=== PATIENT | male | born 1980 | race Caucasian/White ===

== ENCOUNTER 2021-05-18 18:29 | Emergency (ER) | payer MEDICAID, OTHER ==
--- NOTE | 2021-05-18 18:47 | ED Physician Documentation ---
History of Present Illness - Stated complaint Stated Complaint: DIZZY,WEAK,BACK PX - Chief complaint Chief Complaint: Neuro - Additonal information Additional information: 41-year-old male presents emergency department for evaluation of feeling weak, dizzy and lightheaded for the last week. He reports that when he changes position he often feels off balance. He sometimes says that he simply does not feel right and is fearful that he will pass out though he has no syncopal events. 9 he denies chest pain or shortness of air. He has had some diarrhea over the last week. No headaches. Patient was a heavy alcohol user. Reported drinking daily until about 6 weeks ago when he stopped abruptly however he reportedly drank about 24 beers last weekend and had a few mixed drinks this week. He also is a pack per day tobacco user. Patient states that just over 1 week ago he decided to lose weight and stopped eating carbs and switch to a protein only diet. Denies any known medical history including diabetes, hypertension coronary ar andie disease or strokes. Takes no prescribed medications Review of Systems Constitutional: denies: Fever, Chills Eyes: reports: Reviewed and negative Ears: reports: Reviewed and negative Nose: reports: Reviewed and negative Throat: reports: Reviewed and negative Cardiac: denies: Chest pain / pressure, Palpitations, Pedal edema, Calf pain Respiratory: reports: Dyspnea. denies: Cough, Hemoptysis, Wheezing GI: reports: Reviewed and negative : reports: Reviewed and negative Skin: reports: Other (scleral icterus) Musculoskeletal: reports: Back pain. denies: Neck pain, Extremity pain, Joint pain Neurologic: reports: Reviewed and negative PD PAST MEDICAL HISTORY - Present Medications Home Medications: Ambulatory Orders Medication Instructions Recorded Confirmed No Known Home Medications 05/18/21 05/18/21 - Allergies Allergies/Adverse Reactions: Allergies Allergy/AdvReac Type Severity Reaction Status Date / Time No Known Drug Allergies Allergy Verified 05/18/21 18:32 PD ED PE EXPANDED - General General: Alert, No acute distress - Eyes Eyes: PERRL, EOMI, Scleral icterus - Neck Neck: Supple w/out meningeal sx. No: Adenopathy - Cardiac Cardiac: Regular Rate, Radial strong equal, Pedal strong equal, Cap refill < 2 sec. No: Murmur Present - Respiratory Respiratory: Clear to ausultation tonya. No: Distress, Labored - Abdomen Abdomen: Normal Bowel sounds. No: Tender to palpation - Derm Derm: Normal color, Warm and dry. No: Jaundiced - Extremities Extremities: Normal, Pedal Pulses Present. No: Deformity, Tenderness - Neuro Neuro: Alert and Oriented X 3, CNII-XII intact, Normal gait, Normal finger nose, Normal speech - GCS Eye Opening: Spontaneous Motor: Obeys Commands Verbal: Oriented Total: 15 Results - Vitals Vitals: Vital Signs - 24 hr 05/18/21 05/18/21 18:32 19:02 Temperature 36.7 C Heart Rate 75 Heart Rate [ 70 Sitting] Heart Rate [ 76 Standing] Heart Rate [ 74 Supine] Respiratory 18 Rate Blood Pressure 160/84 H Blood Pressure 174/98 H [Sitting] Blood Pressure 152/101 H [Standing] Blood Pressure 174/98 H [Supine] O2 Saturation 99 Oxygen O2 Source Room air - EKG (time done) 1843 Rate: Rate (enter#) (71) Rhythm: NSR [place]: LAD Intervals: Normal IN. No: Prolonged QT QRS: Normal Ischemia: Q waves (V1V2) Computer interpretation: Agree with computer - Labs Labs: Laboratory Tests 05/18/21 05/18/21 05/18/21 18:46 18:56 18:56 WBC 6.4 RBC 5.01 Hgb 16.0 Hct 46.9 MCV 93.6 MCH 31.9 H MCHC 34.1 RDW 11.9 L Plt Count 203 MPV 9.4 Neut # (Auto) 4.4 Lymph # (Auto) 1.6 [place] # (Auto) 0.3 Eos # (Auto) 0.1 Baso # (Auto) 0.0 Absolute Nucleated RBC 0.00 Nucleated RBC % 0.0 PT INR Sodium 136 Potassium 3.6 Chloride 101 Carbon Dioxide 25 Anion Gap 10.0 BUN 20 Creatinine 1.1 Estimated GFR (MDRD) 73 L Glucose 129 H POC Whole Bld Glucose Calcium 9.2 Total Bilirubin 0.5 AST 23 ALT 36 Alkaline Phosphatase 64 Troponin I High Sens Total Protein 7.1 Albumin 4.5 Globulin 2.6 Albumin/Globulin Ratio 1.7 Lipase 31 Urine Color STRAW Urine Clarity CLEAR Urine pH 6.0 Ur Specific [place] <=1.005 Urine Protein NEGATIVE Urine Glucose (UA) NEGATIVE Urine Ketones NEGATIVE Urine Occult Blood NEGATIVE Urine Nitrite NEGATIVE Urine Bilirubin NEGATIVE Urine Urobilinogen 0.2 (NORMAL) Ur Leukocyte Esterase NEGATIVE Ur Microscopic Review NOT INDICATED Urine Culture Comments NOT INDICATED 05/18/21 05/18/21 05/18/21 18:56 18:56 19:06 WBC RBC Hgb Hct MCV MCH MCHC RDW Plt Count MPV Neut # (Auto) Lymph # (Auto) [place] # (Auto) Eos # (Auto) Baso # (Auto) Absolute Nucleated RBC Nucleated RBC % PT 11.8 INR 1.1 Sodium Potassium Chloride Carbon Dioxide Anion Gap BUN Creatinine Estimated GFR (MDRD) Glucose POC Whole Bld Glucose 120 H Calcium Total Bilirubin AST ALT Alkaline Phosphatase Troponin I High Sens 2.7 Total Protein Albumin Globulin Albumin/Globulin Ratio Lipase Urine Color Urine Clarity Urine pH Ur Specific [place] Urine Protein Urine Glucose (UA) Urine Ketones Urine Occult Blood Urine Nitrite Urine Bilirubin Urine Urobilinogen Ur Leukocyte Esterase Ur Microscopic Review Urine Culture Comments - Rads (name of study) cxr Radiology: EMP read indepedently (No acute cardiopulmonary process) PD MEDICAL DECISION MAKING - ED course Complexity details: reviewed results, re-evaluated patient, considered differential, d/w patient ED course: 41-year-old male presents emergency department for evaluation of about 1 week feeling generally off lightheaded dizzy and sometimes feeling as though he was going to pass out. He has made some significant lifestyle changes recently. About 6 weeks ago he stopped drinking though he did binge drink last weekend. He has also stopped eating carbs and switch to a meat/protein only diet and in order to lose weight. On exam he has no focal neuro deficits and a normal cerebellar exam. ED orthostatic vital signs are unremarkable though he is noted to be modestly hypertensive here in the ER. Screening EKG is nonischemic. Screening labs are also unremarkable without any electrolyte derangement. 9 I did discuss with the patient that I suspect his recent lifestyle modifications may be the cause of his feeling off balance and lightheaded. I have encouraged him to consider moderation in terms of diet alcohol use as well as tobacco use. Patient is discharged home in stable condition. He is encouraged to establish with a primary care provider for routine screening exams emergent return precautions otherwise discussed. Departure - Departure Disposition: Home, Self Care Clinical Impression: Light-headed feeling Condition: Stable Record reviewed to determine appropriate education?: Yes Comments: Wei colby are seen today in the emergency department for feeling lightheaded, dizzy and weak. You have had some significant lifestyle changes over the last 6 weeks which have included significant reduction in alcohol use as well as a drastic change in your diet. I do suspect that the abstain meant of carbohydrates in your diet is contributing to your symptoms. I do encourage you to eat a healthy diet that should include moderation in carbs, lean protein, plenty of vegetables and a few fruit. Your screening labs today including your blood count and chemistry panel under are all essentially unremarkable. Your chest x-ray is normal. There are no signs that you are having a heart attack. I encourage you to stop smoking as you are able. It is important that you establish with a primary care doctor for long-term routine health screening exams. If at any point you feel that your symptoms are worsening, you have chest pain, shortness of air or any fainting episodes then please return immediately to the ER for a second evaluation
[2021-05-18 18:57] LABS: BILIRUBIN,URINE NEGATIVE (NEGATIVE); GLUCOSE, URINE (UA) NEGATIVE (NEGATIVE); KETONES,URINE (UA) NEGATIVE (NEGATIVE); LEUKOCYTE ESTERASE, URINE NEGATIVE (NEGATIVE); NITRITE,URINE NEGATIVE (NEGATIVE); OCCULT BLOOD,URINE NEGATIVE (NEGATIVE); PROTEIN,URINE NEGATIVE (NEGATIVE); UROBILINOGEN,URINE 0.2 (NORMAL) E.U./dL (NORMAL)
[2021-05-18 19:01] LABS: CLARITY,URINE CLEAR (CLEAR)
[2021-05-18 19:03] VITALS: BP 174/98
--- NOTE | 2021-05-18 19:03 | XRAY Report ---
PROCEDURE: Chest 1 View X-Ray INDICATIONS: Chest Pain TECHNIQUE: One view of the chest was acquired. COMPARISON: None FINDINGS: Surgical changes and devices: None. Lungs and pleura: No pleural effusions or pneumothorax. Lungs are clear. Mediastinum: Mediastinal contours appear normal. Heart size is normal. Bones and chest wall: No suspicious bony lesions. Overlying soft tissues appear unremarkable. IMPRESSION: No acute cardiopulmonary disease. Reviewed by: Alessia James MD on 05/18/2021 7:01 PM PDT Approved by: Alessia James MD on 05/18/2021 7:01 PM PDT Station ID: [id number]
[2021-05-18 19:05] LABS: BASOPHILS % (AUTO) 0.6 %; EOSINOPHILS # (AUTO) 0.1 10^3/uL (0.0-0.7); EOSINOPHILS % (AUTO) 1.9 %; HCT - HEMATOCRIT 46.9 % (42.0-52.0); LYMPHOCYTES # (AUTO) 1.6 10^3/uL (1.5-3.5); LYMPHOCYTES % (AUTO) 25.3 %; MEAN CORPUSCULAR HEMOGLOBIN 31.9 pg (27.0-31.0); MEAN CORPUSCULAR HGB CONC 34.1 g/dL (32.0-36.0); MEAN CORPUSCULAR VOLUME 93.6 fL (80.0-94.0); MEAN PLATELET VOLUME 9.4 fL (7.4-11.4); MONOCYTES # (AUTO) 0.3 10^3/uL (0.0-1.0); MONOCYTES % (AUTO) 4.1 %; NEUTROPHILS # (AUTO) 4.4 10^3/uL (1.5-6.6); NEUTROPHILS % (AUTO) 67.9 %; PLT - PLATELET COUNT 203 10^3/uL (130-450); RED BLOOD COUNT 5.01 10^6/uL (4.70-6.10); RED CELL DISTRIBUTION WIDTH 11.9 % (12.0-15.0); WHITE BLOOD COUNT 6.4 x10^3/uL (4.8-10.8)
[2021-05-18 19:20] LABS: INR 1.1 (0.8-1.2); PT - PROTHROMBIN TIME 11.8 secs (9.9-12.6)
[2021-05-18 19:23] LABS: ALBUMIN 4.5 g/dL (3.2-5.5); ALBUMIN/GLOBULIN RATIO 1.7 (1.0-2.2); BILIRUBIN,TOTAL 0.5 mg/dL (0.2-1.0); CALCIUM 9.2 mg/dL (8.5-10.3); CREATININE 1.1 mg/dL (0.6-1.2); POTASSIUM 3.6 mmol/L (3.5-5.0); TOTAL PROTEIN 7.1 g/dL (6.7-8.2)
== END 2021-05-18 20:09 | disposition home or self-care (01) ==
LOC: ED 18:29
DX: R42 Dizziness and giddiness (principal); Z72.0 Tobacco use
CPT/HCPCS: 36415; 80053; 81001; 81003; 83690; 84484; 85025; 85610; 87086; 93005; 99284

== ENCOUNTER 2021-05-24 11:37 | Outpatient (CLI) | payer MEDICAID ==
[2021-05-24 15:19] LABS: BASOPHILS % (AUTO) 0.4 %; EOSINOPHILS # (AUTO) 0.1 10^3/uL (0.0-0.7); EOSINOPHILS % (AUTO) 1.7 %; HCT - HEMATOCRIT 46.5 % (42.0-52.0); HGB - HEMOGLOBIN 15.4 g/dL (14.0-18.0); LYMPHOCYTES # (AUTO) 1.3 10^3/uL (1.5-3.5); LYMPHOCYTES % (AUTO) 24.5 %; MEAN CORPUSCULAR HGB CONC 33.1 g/dL (32.0-36.0); MEAN CORPUSCULAR VOLUME 93.8 fL (80.0-94.0); MEAN PLATELET VOLUME 10.2 fL (7.4-11.4); MONOCYTES # (AUTO) 0.3 10^3/uL (0.0-1.0); NEUTROPHILS # (AUTO) 3.7 10^3/uL (1.5-6.6); NEUTROPHILS % (AUTO) 68.2 %; PLT - PLATELET COUNT 212 10^3/uL (130-450); RED BLOOD COUNT 4.96 10^6/uL (4.70-6.10); RED CELL DISTRIBUTION WIDTH 11.9 % (12.0-15.0); WHITE BLOOD COUNT 5.4 x10^3/uL (4.8-10.8)
[2021-05-24 15:40] LABS: ALBUMIN 4.3 g/dL (3.2-5.5); ALBUMIN/GLOBULIN RATIO 1.6 (1.0-2.2); ALKALINE PHOSPHATASE 63 IU/L (42-121); ALT ALANINE AMINOTRANSFERASE 36 IU/L (10-60); AST ASPARTATE AMINOTRANSFERASE 22 IU/L (10-42); BILIRUBIN,TOTAL 0.4 mg/dL (0.2-1.0); BUN - BLOOD UREA NITROGEN 17 mg/dL (6-20); CARBON DIOXIDE - CO2 27 mmol/L (21-32); CHLORIDE 102 mmol/L (101-111); CREATININE 1.1 mg/dL (0.6-1.2); GFR - MDRD 73 (>89); GLUCOSE 111 mg/dL (70-100); LIPASE 33 U/L (22-51); POTASSIUM 4.4 mmol/L (3.5-5.0); SODIUM 138 mmol/L (135-145)
[2021-05-24 15:45] LABS: CRP - C-REACTIVE PROTEIN < 1.0 mg/dL (0-1.0)
[2021-05-24 15:46] LABS: THYROID STIMULATING HORMONE 1.31 uIU/mL (0.34-5.60)
[2021-05-24 15:57] LABS: FOLATE 14.2 ng/mL (5.90 - >24.8)
[2021-05-25 09:59] LABS: ESTIMATED AVERAGE GLUCOSE 100 mg/dL (70-100); HEMOGLOBIN A1c% 5.1 % (4.27-6.07)
== END 2021-05-24 23:59 | disposition home or self-care (01) ==
LOC: LAB.S 11:37
PROVIDERS: ATTEND Registered Nurse
DX: R42 Dizziness and giddiness (principal); R53.83 Other fatigue; F10.239 Alcohol dependence with withdrawal, unspecified
CPT/HCPCS: 36415; 80050; 82607; 82746; 83036; 83690; 86140

== ENCOUNTER 2021-06-11 16:32 | Emergency (ER) | payer MEDICAID ==
[2021-06-11] MEDS ORDERED: IOVERSOL 320 100 ML VIAL IVP ONE ×2 (16:50→19:05)
--- OUTSIDE RECORDS SUMMARY | 2021-06-11 16:53 | EXTERNAL MEDICAL SUMMARY RPT | Continuity of Care Document ---
:1980 Author Organization [facility] Address [address] [place] [address] Phone Care Team Providers Name Role Phone RN Unavailable Unavailable [place]ton Unavailable Unavailable [employer] BLOWER,CORPORATE COMPLIANCE DIRECTOR Unavailable Unavailable Allergies No information. Encounters No information. Medications date description facility [id number] chlordiazepoxide hcl [facility] [place] [id number] chlordiazepoxide hcl [facility] [place] [id number] chlordiazepoxide hcl [facility] [place] Problems date description facility [id number] VITAMIN B 12 [facility] [id number] TSH WITH REFLEX TO FT4 [facility] [id number] Other malaise and fatigue [facility] ic [facility] [id number] Nonspecific abnormal electrocardiogram [facility] Primary Care & [ECG] [EKG] [facility]illary [facility] [id number] Lipase [facility] [id number] Dizziness and giddiness [facility] [id number] COMPREHENSIVE METABOLIC PANEL [facility] 20210524 CBC W/Diff/Plt [facility] 20210524 Alcohol withdrawal [facility] 20210524 Other fatigue [facility] [id number] HGBA1C [facility] 20210524 Folic Acid [facility] [id number] Electrocardiogram abnormal [facility] [id number] CRP [facility] [id number] Abnormal electrocardiogram [ECG] [EKG] [facility] [id number] Fatigue [facility] 20210524 Dizziness [facility] 20210524 Alcohol withdrawal syndrome [facility] 20210524 Alcohol dependence with withdrawal, [place] [facility] & unspecified [facility] Procedures date description facility [id number] CRP [facility] [place] 20210524 CBC W/Diff/Plt [facility] [place] 20210524 Lipase [facility] [id number] HGBA1C [facility] 20210524 Folic Acid [facility] 20210524 VITAMIN B 12 [facility] 20210524 COMPREHENSIVE METABOLIC PANEL [facility] 20210524 TSH WITH REFLEX TO FT4 [facility] 20210524 CRP [facility] 20210524 CBC W/Diff/Plt [facility] 20210524 Lipase [facility] [place] [id number] HGBA1C [facility] 20210524 Folic Acid [facility] 20210524 VITAMIN B 12 [facility] 20210524 COMPREHENSIVE METABOLIC PANEL [facility] 20210524 TSH WITH REFLEX TO FT4 [facility] 20210524 CRP [facility] 20210524 CBC W/Diff/Plt [facility] 20210524 Lipase [facility] 20210524 HGBA1C [facility] 20210524 Folic Acid [facility] 20210524 VITAMIN B 12 [facility] 20210524 COMPREHENSIVE METABOLIC PANEL [facility] [place] 20210524 TSH WITH REFLEX TO FT4 [facility] [place] Results test status date ordered by attending specimen cristy e THYROID_STIMULATING_HO unknown 20210524 unknown unknown unknown RMONE TSH unknown 20210524 unknown unknown unknown urea_nitrogen_blood unknown 20210524 unknown unknown unk nown Erythrocytes_volume_in unknown 20210524 unknown unknown unknown _Blood_by_Automated_cou nt Erythrocyte_distributi unknown 20210524 unknown unknown unknown on_width_Ratio_by_Autom ated_count MCV_Entitic_volume_by_ unknown 20210524 unknown unknown unknown Automated_count MCH_Entitic_mass_by_Au unknown 20210524 unknown unknown unknown tomated_count Platelets_volume_in_Bl unknown 20210524 unknown unknown unknown ood_by_Automated_count Platelet_mean_volume_E unknown 20210524 unknown unknown unknown ntitic_volume_in_Blood_ by_Rees-Grace neutrophil_count_blood unknown 20210524 unknown unknown unknown monocyte_count_blood unknown 20210524 unknown unknown un known lymphocyte_count_blood unknown 20210524 unknown unknown unknown Hemoglobin_Mass_volume unknown 20210524 unknown unknown unknown _in_Blood eosinophil_count_blood unknown 20210524 unknown unknown unknown Basophils_volume_in_Bl unknown 20210524 unknown unknown unknown ood_by_Manual_count leukocyte_count_blood unknown 20210524 unknown unknown u nknown erythrocyte_RBC_count unknown 20210524 unknown unknown u nknown Leukocytes_volume_in_B unknown 20210524 unknown unknown unknown lood_by_Automated_count Glomerular_Filtration_ unknown 20210524 unknown unknown unknown rate platelet_count unknown 20210524 unknown unknown unknown hemoglobin_blood unknown 20210524 unknown unknown unknow n hematocrit_blood unknown 20210524 unknown unknown unknow n potassium_blood unknown 20210524 unknown unknown unknown vitamin_b12_serum unknown 20210524 unknown unknown unkno wn Glomerular_filtration_r unknown 20210524 unknown unknown unknown ate_1.73_sq_M.predicted _among_non-blacks_Volum e_Rate_Area_in_Serum_Pl asma_or_Blood_by_Creati nine-based_formula_MDRD _ Hemoglobin_A1c_Hemoglo unknown 20210524 unknown unknown unknown bin_total_in_Blood_-_ Hematocrit_Volume_Frac unknown 20210524 unknown unknown unknown tion_of_Blood_by_Automa ted_count bilirubin_serum_total unknown 20210524 unknown unknown u nknown alanine_aminotransfera unknown 20210524 unknown unknown unknown se_SGPT_serum carbon_dioxide_serum_t unknown 20210524 unknown unknown unknown otal aspartate_aminotransfe unknown 20210524 unknown unknown unknown rase_SGOT_serum protein_total_serum unknown 20210524 unknown unknown unk nown blood_glucose unknown 20210524 unknown unknown unknown potassium_blood unknown 20210524 unknown unknown unknown mean_corpuscular_volum unknown 20210524 unknown unknown unknown e_RBC Urea_nitrogen_Mass_vol unknown 20210524 unknown unknown unknown ume_in_Serum_or_Plasma globulin_serum unknown 20210524 unknown unknown unknown alkaline_phosphatase_s unknown 20210524 unknown unknown unknown deana Sodium_Moles_volume_in unknown 20210524 unknown unknown unknown _Serum_or_Plasma Protein_Mass_volume_in unknown 20210524 unknown unknown unknown _Serum_or_Plasma eosinophil_count_blood unknown 20210524 unknown unknown unknown hemoglobin_A1C_blood_a unknown 20210524 unknown unknown unknown s_of_total_hemoglobin anion_gap_serum unknown 20210524 unknown unknown unknown mean_platelet_volume unknown 20210524 unknown unknown un known Glucose_mean_value_Mas unknown 20210524 unknown unknown unknown s_volume_in_Blood_Estim ated_from_glycated_hemo globin C-reactive_protein_ser unknown 20210524 unknown unknown unknown um basophil_count_blood unknown 20210524 unknown unknown un known monocyte_count_blood unknown 20210524 unknown unknown un known lymphocyte_count_blood unknown 20210524 unknown unknown unknown neutrophil_count_blood unknown 20210524 unknown unknown unknown Glucose_Mass_volume_in unknown 20210524 unknown unknown unknown _Serum_or_Plasma Globulin_Mass_volume_i unknown 20210524 unknown unknown unknown n_Serum Creatinine_Mass_volume unknown 20210524 unknown unknown unknown _in_Serum_or_Plasma Cobalamin_Vitamin_B12_ unknown 20210524 unknown unknown unknown Mass_volume_in_Serum_or _Plasma Chloride_Moles_volume_ unknown [id number] unknown unknown unknown in_Serum_or_Plasma carbon_dioxide_serum_t unknown 20210524 unknown unknown unknown otal Calcium_Moles_volume_i unknown 20210524 unknown unknown unknown n_Serum_or_Plasma albumin_serum unknown 20210524 unknown unknown unknown C_reactive_protein_Mas unknown 20210524 unknown unknown unknown s_volume_in_Serum_or_Pl asma Bilirubin.total_Mass_v unknown 20210524 unknown unknown unknown olume_in_Serum_or_Plasm a Aspartate_aminotransfe unknown 20210524 unknown unknown unknown rase_Enzymatic_activity _volume_in_Serum_or_Pla sma Anion_gap_4_in_Serum_o unknown 20210524 unknown unknown unknown r_Plasma Estimated_Average_Gluc unknown 20210524 unknown unknown unknown ose creatinine_serum unknown 20210524 unknown unknown unknow n Alkaline_phosphatase_E unknown 20210524 unknown unknown unknown nzymatic_activity_volum e_in_Blood Albumin_Globulin_Mass_ unknown 20210524 unknown unknown unknown Ratio_in_Serum_or_Plasm a Albumin_Mass_volume_in unknown 20210524 unknown unknown unknown _Serum_or_Plasma Alanine_aminotransfera unknown 20210524 unknown unknown unknown se_Enzymatic_activity_v olume_in_Serum_or_Plasm a mean_corpuscular_hemog unknown 20210524 unknown unknown unknown lobin_concentration_rbc sodium_serum unknown 20210524 unknown unknown unknown albumin_globulin_ratio unknown 20210524 unknown unknown unknown _serum chloride_serum unknown 20210524 unknown unknown unknown Thyrotropin_Units_volu unknown 20210524 unknown unknown unknown me_in_Serum_or_Plasma_b y_Detection_limit_lt_0. 05_mIU_L calcium_serum unknown 20210524 unknown unknown unknown mean_corpuscular_hemog unknown 20210524 unknown unknown unknown lobin_RBC red_blood_cell_distrib unknown 20210524 unknown unknown unknown ution_width T unknown 20210524 unknown unknown unknown T unknown 20210524 unknown unknown unknown T unknown 20210524 unknown unknown unknown T unknown 20210524 unknown unknown unknown T unknown 20210524 unknown unknown unknown T unknown 20210524 unknown unknown unknown T unknown 20210524 unknown unknown unknown NEUTROPHILS_AUTO_ unknown 20210524 unknown unknown unkno wn T unknown [id number] unknown unknown unknown T unknown [id number] unknown unknown unknown T unknown 14817271 unknown unknown unknown MONOCYTES_AUTO_ unknown [id number] unknown unknown unknown T unknown [id number] unknown unknown unknown T unknown 80025076 unknown unknown unknown T unknown 42581676 unknown unknown unknown T unknown 94205416 unknown unknown unknown LYMPHOCYTES_AUTO_ unknown 84632333 unknown unknown unkno wn T unknown 02800677 unknown unknown unknown T unknown 58256636 unknown unknown unknown T unknown 82876310 unknown unknown unknown T unknown 31311997 unknown unknown unknown T unknown 70993338 unknown unknown unknown T unknown 55900859 unknown unknown unknown T unknown [id number] unknown unknown unknown GFR_-_MDRD unknown 71610552 unknown unknown unknown T unknown 68945147 unknown unknown unknown T unknown 10122066 unknown unknown unknown EOSINOPHILS_AUTO_ unknown [id number] unknown unknown unkno wn T unknown [id number] unknown unknown unknown ESTIMATED_AVERAGE_GLUC unknown 01023137 unknown unknown unknown OSE ENR_-_P-IRWTYAXY_UGOMY unknown 47721953 unknown unknown unknown IN T unknown 37521097 unknown unknown unknown T unknown 30505699 unknown unknown unknown T unknown 14473888 unknown unknown unknown T unknown 65542595 unknown unknown unknown T unknown 80857767 unknown unknown unknown T unknown 39300358 unknown unknown unknown BILIRUBIN_TOTAL unknown 10698651 unknown unknown unknown BASOPHILS_AUTO_ unknown 61006250 unknown unknown unknown T unknown 57996863 unknown unknown unknown T unknown 28151906 unknown unknown unknown T unknown 14123082 unknown unknown unknown T unknown 01619001 unknown unknown unknown T unknown [id number] unknown unknown unknown ALT_ALANINE_AMINOTRANS unknown [id number] unknown unknown unknown FERASE ALKALINE_PHOSPHATASE unknown 87880988 unknown unknown un known T unknown 20063378 unknown unknown unknown T unknown 11422236 unknown unknown unknown ALBUMIN_GLOBULIN_RATIO unknown [id number] unknown unknown unknown T unknown 78182852 unknown unknown unknown HEMOGLOBIN_A1c_ unknown 75681502 unknown unknown unknown THYROID_STIMULATING_HO unknown [id number] unknown unknown unknown RMONE TSH unknown 24581740 unknown unknown unknown urea_nitrogen_blood unknown 77832573 unknown unknown unk nown Erythrocytes_volume_in unknown 14190502 unknown unknown unknown _Blood_by_Automated_cou nt Erythrocyte_distributi unknown 63334486 unknown unknown unknown on_width_Ratio_by_Autom ated_count MCV_Entitic_volume_by_ unknown 51693858 unknown unknown unknown Automated_count MCH_Entitic_mass_by_Au unknown 20210524 unknown unknown unknown tomated_count Platelets_volume_in_Bl unknown 20210524 unknown unknown unknown ood_by_Automated_count Platelet_mean_volume_E unknown 20210524 unknown unknown unknown ntitic_volume_in_Blood_ by_Rees-Grace neutrophil_count_blood unknown 20210524 unknown unknown unknown monocyte_count_blood unknown 37031924 unknown unknown un known lymphocyte_count_blood unknown 20210524 unknown unknown unknown Hemoglobin_Mass_volume unknown 20210524 unknown unknown unknown _in_Blood eosinophil_count_blood unknown 20210524 unknown unknown unknown Basophils_volume_in_Bl unknown 20210524 unknown unknown unknown ood_by_Manual_count leukocyte_count_blood unknown 20210524 unknown unknown u nknown erythrocyte_RBC_count unknown 20210524 unknown unknown u nknown Leukocytes_volume_in_B unknown 20210524 unknown unknown unknown lood_by_Automated_count Glomerular_Filtration_ unknown 20210524 unknown unknown unknown rate platelet_count unknown 20210524 unknown unknown unknown hemoglobin_blood unknown 20210524 unknown unknown unknow n hematocrit_blood unknown 20210524 unknown unknown unknow n potassium_blood unknown 20210524 unknown unknown unknown vitamin_b12_serum unknown 20210524 unknown unknown unkno wn Glomerular_filtration_r unknown 20210524 unknown unknown unknown ate_1.73_sq_M.predicted _among_non-blacks_Volum e_Rate_Area_in_Serum_Pl asma_or_Blood_by_Creati nine-based_formula_MDRD _ Hemoglobin_A1c_Hemoglo unknown 20210524 unknown unknown unknown bin_total_in_Blood_-_ Hematocrit_Volume_Frac unknown 20210524 unknown unknown unknown tion_of_Blood_by_Automa ted_count bilirubin_serum_total unknown 20210524 unknown unknown u nknown alanine_aminotransfera unknown 20210524 unknown unknown unknown se_SGPT_serum carbon_dioxide_serum_t unknown 20210524 unknown unknown unknown otal aspartate_aminotransfe unknown 20210524 unknown unknown unknown rase_SGOT_serum protein_total_serum unknown 20210524 unknown unknown unk nown blood_glucose unknown 20210524 unknown unknown unknown potassium_blood unknown 20210524 unknown unknown unknown mean_corpuscular_volum unknown 20210524 unknown unknown unknown e_RBC Urea_nitrogen_Mass_vol unknown 20210524 unknown unknown unknown ume_in_Serum_or_Plasma globulin_serum unknown 20210524 unknown unknown unknown alkaline_phosphatase_s unknown 20210524 unknown unknown unknown deana Sodium_Moles_volume_in unknown 20210524 unknown unknown unknown _Serum_or_Plasma Protein_Mass_volume_in unknown 20210524 unknown unknown unknown _Serum_or_Plasma eosinophil_count_blood unknown 20210524 unknown unknown unknown hemoglobin_A1C_blood_a unknown 20210524 unknown unknown unknown s_of_total_hemoglobin anion_gap_serum unknown 20210524 unknown unknown unknown mean_platelet_volume unknown 20210524 unknown unknown un known Glucose_mean_value_Mas unknown 20210524 unknown unknown unknown s_volume_in_Blood_Estim ated_from_glycated_hemo globin C-reactive_protein_ser unknown 20210524 unknown unknown unknown um basophil_count_blood unknown 20210524 unknown unknown un known monocyte_count_blood unknown 20210524 unknown unknown un known lymphocyte_count_blood unknown 20210524 unknown unknown unknown neutrophil_count_blood unknown 20210524 unknown unknown unknown Glucose_Mass_volume_in unknown 20210524 unknown unknown unknown _Serum_or_Plasma Globulin_Mass_volume_i unknown 20210524 unknown unknown unknown n_Serum Creatinine_Mass_volume unknown 20210524 unknown unknown unknown _in_Serum_or_Plasma Cobalamin_Vitamin_B12_ unknown 20210524 unknown unknown unknown Mass_volume_in_Serum_or _Plasma Chloride_Moles_volume_ unknown 20210524 unknown unknown unknown in_Serum_or_Plasma carbon_dioxide_serum_t unknown 20210524 unknown unknown unknown otal Calcium_Moles_volume_i unknown 20210524 unknown unknown unknown n_Serum_or_Plasma albumin_serum unknown 20210524 unknown unknown unknown C_reactive_protein_Mas unknown 20210524 unknown unknown unknown s_volume_in_Serum_or_Pl asma Bilirubin.total_Mass_v unknown 20210524 unknown unknown unknown olume_in_Serum_or_Plasm a Aspartate_aminotransfe unknown 20210524 unknown unknown unknown rase_Enzymatic_activity _volume_in_Serum_or_Pla sma Anion_gap_4_in_Serum_o unknown 21328687 unknown unknown unknown r_Plasma Estimated_Average_Gluc unknown 59314054 unknown unknown unknown ose creatinine_serum unknown 22209726 unknown unknown unknow n Alkaline_phosphatase_E unknown 23103476 unknown unknown unknown nzymatic_activity_volum e_in_Blood Albumin_Globulin_Mass_ unknown 31966997 unknown unknown unknown Ratio_in_Serum_or_Plasm a Albumin_Mass_volume_in unknown 37011359 unknown unknown unknown _Serum_or_Plasma Alanine_aminotransfera unknown 27104141 unknown unknown unknown se_Enzymatic_activity_v olume_in_Serum_or_Plasm a mean_corpuscular_hemog unknown 78187252 unknown unknown unknown lobin_concentration_rbc sodium_serum unknown 41201889 unknown unknown unknown albumin_globulin_ratio unknown 01651494 unknown unknown unknown _serum chloride_serum unknown 58506258 unknown unknown unknown Thyrotropin_Units_volu unknown 87096358 unknown unknown unknown me_in_Serum_or_Plasma_b y_Detection_limit_lt_0. 05_mIU_L calcium_serum unknown 88449034 unknown unknown unknown mean_corpuscular_hemog unknown 92562543 unknown unknown unknown lobin_RBC red_blood_cell_distrib unknown 11897987 unknown unknown unknown ution_width T unknown 67685308 unknown unknown unknown T unknown 18555610 unknown unknown unknown T unknown 90843281 unknown unknown unknown T unknown 49427107 unknown unknown unknown T unknown 44676488 unknown unknown unknown T unknown 85569334 unknown unknown unknown T unknown 20512179 unknown unknown unknown NEUTROPHILS_AUTO_ unknown 20526265 unknown unknown unkno wn T unknown 43039234 unknown unknown unknown T unknown 19083445 unknown unknown unknown T unknown 27976472 unknown unknown unknown MONOCYTES_AUTO_ unknown 91013790 unknown unknown unknown T unknown 56303146 unknown unknown unknown T unknown 45968119 unknown unknown unknown T unknown 60439177 unknown unknown unknown T unknown 90196754 unknown unknown unknown LYMPHOCYTES_AUTO_ unknown 12101797 unknown unknown unkno wn T unknown 43214705 unknown unknown unknown T unknown 07271026 unknown unknown unknown T unknown 21222214 unknown unknown unknown T unknown 54260432 unknown unknown unknown T unknown 71932922 unknown unknown unknown T unknown 20432807 unknown unknown unknown T unknown 18822288 unknown unknown unknown GFR_-_MDRD unknown 15368374 unknown unknown unknown T unknown 36319655 unknown unknown unknown T unknown 21132353 unknown unknown unknown EOSINOPHILS_AUTO_ unknown 20210524 unknown unknown unkno wn T unknown 20210524 unknown unknown unknown ESTIMATED_AVERAGE_GLUC unknown 20210524 unknown unknown unknown OSE RRV_-_E-BPMSNOEL_TDATF unknown 20210524 unknown unknown unknown IN T unknown 48316572 unknown unknown unknown T unknown 82072980 unknown unknown unknown T unknown 42373798 unknown unknown unknown T unknown 95892542 unknown unknown unknown T unknown 86052147 unknown unknown unknown T unknown 03059873 unknown unknown unknown BILIRUBIN_TOTAL unknown 20210524 unknown unknown unknown BASOPHILS_AUTO_ unknown 10174640 unknown unknown unknown T unknown 92809455 unknown unknown unknown T unknown 83113480 unknown unknown unknown T unknown 49973506 unknown unknown unknown T unknown 67389116 unknown unknown unknown T unknown 91136692 unknown unknown unknown ALT_ALANINE_AMINOTRANS unknown 20210524 unknown unknown unknown FERASE ALKALINE_PHOSPHATASE unknown 20210524 unknown unknown un known T unknown 20210524 unknown unknown unknown T unknown 20210524 unknown unknown unknown ALBUMIN_GLOBULIN_RATIO unknown 20210524 unknown unknown unknown T unknown 31918463 unknown unknown unknown HEMOGLOBIN_A1c_ unknown 37155180 unknown unknown unknown facility observation status value reference units lab code abn ormal line range notes [facility] THYROID_STIM unknown 0.0013 unknown m[iU]/ rTSH unknow n unknown Clinic ULATING_HORMO 1 mL Primary [facility] TSH unknown 0.0013 unknown m[iU]/ _90820 unknown unk nown Clinic 1 mL [facility] urea_nitroge unknown 17 unknown mg/dL _9 unknow n unknown Clinic n_blood [facility] Erythrocytes unknown 4.96 unknown _789-8 unknow n unknown Clinic _volume_in_Bl 10 6/UL Primary ood_by_Automa Care & ted_count [facility]illary [facility] Erythrocyte_ unknown 11.9 unknown % _788-0 unknow n unknown Clinic distribution_ Primary width_Ratio_b Care & y_Automated_c Ancillary ount Services [facility] MCV_Entitic_ unknown 93.8 unknown fL _787-2 unknow n unknown Clinic volume_by_Aut Primary omated_count Care & [facility] MCH_Entitic_ unknown 31.0 unknown pg _785-6 unknow n unknown Clinic mass_by_Autom Primary ated_count Care & [facility] Platelets_vo unknown 212 10 unknown _777-3 unknow n unknown Clinic lume_in_Blood 3/UL Primary _by_Automated Care & _count [facility] Platelet_mea unknown 10.2 unknown fL _776-5 unknow n unknown Clinic n_volume_Enti Primary tic_volume_in Care & _Blood_by_Ree Ancillary s-Grace [facility] neutrophil_c unknown 3.7 10 unknown _752-6 unknow n unknown Clinic ount_blood 3/UL [facility] monocyte_cou unknown 0.3 10 unknown _743-5 unknow n unknown Clinic nt_blood 3/UL [facility] lymphocyte_c unknown 1.3 10 unknown _732-8 unknow n unknown Clinic ount_blood 3/UL [facility] Hemoglobin_M unknown 15.4 unknown g/dL _718-7 unknow n unknown Clinic ass_volume_in Primary _Blood Care & [facility] eosinophil_c unknown 0.1 10 unknown _712-0 unknow n unknown Clinic ount_blood 3/UL [facility] Basophils_vo unknown 0.0 10 unknown _705-4 unknow n unknown Clinic lume_in_Blood 3/UL Primary _by_Manual_co Care & unt [facility] leukocyte_co unknown 5.4 unknown _68 unknow n unknown Clinic unt_blood X10 Primary 3/UL Care & [facility] erythrocyte_ unknown 4.96 unknown _67 unknow n unknown Clinic RBC_count 10 6/UL [facility] Leukocytes_v unknown 5.4 unknown _6690-2 unkno wn unknown Clinic olume_in_Bloo X10 Primary d_by_Automate 3/UL Care & d_count [facility] Glomerular_F unknown 73 unknown mL/min _66455 unknow n unknown Clinic iltration_rat [facility] platelet_cou unknown 212 10 unknown _66 unknow n unknown Clinic nt 3/UL [facility] hemoglobin_b unknown 15.4 unknown g/dL _65 unknow n unknown Clinic lood [facility] hematocrit_b unknown 46.5 unknown % _64 unknow n unknown Clinic lood [facility] potassium_bl unknown 4.4 unknown meq/L _6298-4 unkno wn unknown Clinic ood [facility] vitamin_b12_ unknown 584 unknown pg/mL _5585 unknow n unknown Clinic serum [facility] Glomerular_fi unknown 73 unknown mL/min _48642-3 unkn own unknown Clinic ltration_rate Primary _1.73_sq_M.pr Care & edicted_among Ancillary _non-blacks_V Services olume_Rate_Ar [facility] ea_in_Serum_P lasma_or_Bloo d_by_Creatini ne-based_form ula_MDRD_ [facility] Hemoglobin_A unknown 5.1 unknown % _4548-4 unkno wn unknown Clinic 1c_Hemoglobin Primary _total_in_Blo Care & od_-_ [facility] Hematocrit_V unknown 46.5 unknown % _4544-3 unkno wn unknown Clinic olume_Fractio Primary n_of_Blood_by Care & _Automated_co Ancillary unt [facility] bilirubin_se unknown 0.4 unknown mg/dL _43 unknow n unknown Clinic rum_total [facility] alanine_amin unknown 36 unknown U/L _40 unknow n unknown Clinic otransferase_ Primary SGPT_serum [facility] carbon_dioxi unknown 27 unknown mmol/L _3962 unknow n unknown Clinic de_serum_tota [facility] l [facility] aspartate_am unknown 22 unknown U/L _39 unknow n unknown Clinic inotransferas Primary e_SGOT_serum [facility] protein_tota unknown 7.0 unknown g/dL _36 unknow n unknown Clinic l_serum [facility] blood_glucos unknown 111 unknown mg/dL _3565 unknow n unknown Clinic e [facility] potassium_bl unknown 4.4 unknown meq/L _3483 unknow n unknown Clinic ood [facility] mean_corpusc unknown 93.8 unknown fL _315 unknow n unknown Clinic ular_volume_R Primary BC [facility] Urea_nitroge unknown 17 unknown mg/dL _3094-0 unkno wn unknown Clinic n_Mass_volume Primary _in_Serum_or_ Care & Plasma [facility] globulin_ser unknown 2.7 unknown _3059 unknow n unknown Clinic um [facility] alkaline_pho unknown 63 unknown U/L _3 unknow n unknown Clinic sphatase_seru Primary m [facility] Sodium_Moles unknown 138 unknown mmol/L _2951-2 unkno wn unknown Clinic _volume_in_Se Primary rum_or_Plasma [facility] Protein_Mass unknown 7.0 unknown g/dL _2885-2 unkno wn unknown Clinic _volume_in_Se Primary rum_or_Plasma [facility] eosinophil_c unknown 0.1 10 unknown _285 unknow n unknown Clinic ount_blood 3/UL [facility] hemoglobin_A unknown 5.1 unknown % _28 unknow n unknown Clinic 1C_blood_as_o Primary f_total_hemog Care & lobin [facility] anion_gap_se unknown 9.0 unknown _279 unknow n unknown Clinic rum [facility] mean_platele unknown 10.2 unknown fL _2784 unknow n unknown Clinic t_volume [facility] Glucose_mean unknown 100 unknown mg/dL _27353-2 unkn own unknown Clinic _value_Mass_v Primary olume_in_Bloo Care & d_Estimated_f Ancillary rom_glycated_ Services hemoglobin [facility] C-reactive_p unknown < 1.0 unknown _2704 unknow n unknown Clinic rotein_serum mg/dL [facility] basophil_cou unknown 0.0 10 unknown _2427 unknow n unknown Clinic nt_blood 3/UL [facility] monocyte_cou unknown 0.3 10 unknown _2422 unknow n unknown Clinic nt_blood 3/UL [facility] lymphocyte_c unknown 1.3 10 unknown _2420 unknow n unknown Clinic ount_blood 3/UL [facility] neutrophil_c unknown 3.7 10 unknown _2418 unknow n unknown Clinic ount_blood 3/UL [facility] Glucose_Mass unknown 111 unknown mg/dL _5-7 unkno wn unknown Clinic _volume_in_Se Primary rum_or_Plasma [facility] Globulin_Mas unknown 2.7 unknown _2335- unkno wn unknown Clinic s_volume_in_S Primary deana [facility] Creatinine_M unknown 1.1 unknown mg/dL _0-0 unkno wn unknown Clinic ass_volume_in Primary _Serum_or_Pla Care & sma [facility] Cobalamin_Vi unknown 584 unknown pg/mL _2131- unkno wn unknown Clinic tamin_B12_Mas Primary s_volume_in_S Care & erum_or_Plasm Ancillary a [facility] Chloride_Mol unknown 102 unknown mmol/L _2074- unkno wn unknown Clinic es_volume_in_ Primary Serum_or_Plas Care & ma [facility] carbon_dioxi unknown 27 unknown mmol/L _2027-10 unkno wn unknown Clinic de_serum_tota [facility] l [facility] Calcium_Mole unknown 10.0 unknown mg/dL _1999- unkno wn unknown Clinic s_volume_in_S Primary erum_or_Plasm Care & a [facility] albumin_seru unknown 4.3 unknown g/dL _2 unknow n unknown Clinic m [facility] C_reactive_p unknown < 1.0 unknown _1987- unkno wn unknown Clinic rotein_Mass_v mg/dL Primary olume_in_Seru Care & m_or_Plasma [facility] Bilirubin.to unknown 0.4 unknown mg/dL _1974- unkno wn unknown Clinic tal_Mass_volu Primary me_in_Serum_o Care & r_Plasma [facility] Aspartate_am unknown 22 unknown U/L _1920-8 unkno wn unknown Clinic inotransferas Primary e_Enzymatic_a Care & ctivity_volum Ancillary e_in_Serum_or Services _Plasma [facility] Anion_gap_4_ unknown 9.0 unknown _1863-0 unkno wn unknown Clinic in_Serum_or_P Primary lasma Care & [facility] Estimated_Av unknown 100 unknown mg/dL _[id number] unkno wn unknown Clinic erage_Glucose [facility] creatinine_s unknown 1.1 unknown mg/dL _18 unknow n unknown Clinic deana [facility] Alkaline_pho unknown 63 unknown U/L _1783-0 unkno wn unknown Clinic sphatase_Enzy Primary matic_activit Care & y_volume_in_B Ancillary lood Services [facility] Albumin_Glob unknown 1.6 unknown _1759-0 unkno wn unknown Clinic ulin_Mass_Rat Primary io_in_Serum_o Care & r_Plasma [facility] Albumin_Mass unknown 4.3 unknown g/dL _1751-7 unkno wn unknown Clinic _volume_in_Se Primary rum_or_Plasma [facility] Alanine_amin unknown 36 unknown U/L _1742-6 unkno wn unknown Clinic otransferase_ Primary Enzymatic_act Care & ivity_volume_ Ancillary in_Serum_or_P Services lasma [facility] mean_corpusc unknown 33.1 unknown g/dL _17029 unknow n unknown Clinic ular_hemoglob Primary in_concentrat Care & ion_rbc [facility] sodium_serum unknown 138 unknown mmol/L _159 unknow n unknown Clinic [facility] albumin_glob unknown 1.6 unknown _146 unknow n unknown Clinic ulin_ratio_se Primary rum [facility] chloride_ser unknown 102 unknown mmol/L _13 unknow n unknown Clinic um [facility] Thyrotropin_ unknown 0.0013 unknown m[iU]/ _11579-0 unkn own unknown Clinic Units_volume_ 1 mL Primary in_Serum_or_P Care & lasma_by_Dete Ancillary ction_limit_l Services t_0.05_mIU_L [facility] calcium_seru unknown 10.0 unknown mg/dL _11 unknow n unknown Clinic m [facility] mean_corpusc unknown 31.0 unknown pg _1031 unknow n unknown Clinic ular_hemoglob Primary in_RBC [facility] red_blood_ce unknown 11.9 unknown % _1030 unknow n unknown Clinic ll_distributi Primary on_width [facility] T unknown 5.4 unknown WBC unknown [facility] X10 Primary 3/UL Care & [facility] T unknown 0.0013 unknown m[iU]/ TSH unknown [facility] 1 mL [facility] T unknown 0.4 unknown mg/dL TOTAL_BI unknown u [facility] LI [facility] T unknown 11.9 unknown % RDW unknown [facility] T unknown 4.96 unknown RBC unknown [facility] 10 6/UL [facility] T unknown 7.0 unknown g/dL PRO_TOTA unknown u [facility] L [facility] T unknown 212 10 unknown PLT unknown [facility] 3/UL [facility] NEUTROPHILS_ unknown 3.7 10 unknown NE_ unknow n unknown Clinic AUTO_ 3/UL [facility] T unknown 3.7 10 unknown NEUT_AUT unknown u [facility] 3/UL O_ [facility] T unknown 138 unknown mmol/L NA unknown [facility] T unknown 10.2 unknown fL MPV unknown [facility] MONOCYTES_AU unknown 0.3 10 unknown MO_ unknow n unknown Clinic TO_ 3/UL [facility] T unknown 0.3 10 unknown MONO_AUT unknown u [facility] 3/UL O_ [facility] T unknown 93.8 unknown fL MCV unknown [facility] T unknown 33.1 unknown g/dL MCHC unknown [facility] T unknown 31.0 unknown pg MCH unknown [facility] LYMPHOCYTES_ unknown 1.3 10 unknown LY_ unknow n unknown Clinic AUTO_ 3/UL [facility] T unknown 1.3 10 unknown LYMPH_AU unknown u [facility] 3/UL TO_ [facility] T unknown 4.4 unknown meq/L K unknown [facility] T unknown 15.4 unknown g/dL HGB unknown [facility] T unknown 46.5 unknown % HCT unknown [facility] T unknown 111 unknown mg/dL GLU unknown [facility] T unknown 2.7 unknown GLOB unknown [facility] T unknown 73 unknown mL/min GFR_-_MD unknown [facility] RD [facility] GFR_-_MDRD unknown 73 unknown mL/min GFR unknown unknown Clinic [facility] T unknown 9.0 unknown GAP unknown [facility] T unknown 100 unknown mg/dL EST.AVG. unknown u [facility] GLUC [facility] EOSINOPHILS_ unknown 0.1 10 unknown EO_ unknow n unknown Clinic AUTO_ 3/UL [facility] T unknown 0.1 10 unknown EOS_AUTO unknown [facility] 3/UL _ [facility] ESTIMATED_AV unknown 100 unknown mg/dL EAG unknow n unknown Clinic ERAGE_GLUCOSE [facility] BUQ_-_Q-QHHH unknown < 1.0 unknown CRP_WGH_ unkn own unknown Clinic TIVE_PROTEIN mg/dL [facility] T unknown < 1.0 unknown CRP unknown [facility] mg/dL [facility] T unknown 1.1 unknown mg/dL CREAT unknown [facility] T unknown 27 unknown mmol/L CO2 unknown [facility] T unknown 102 unknown mmol/L CL unknown [facility] T unknown 10.0 unknown mg/dL CA unknown [facility] T unknown 17 unknown mg/dL BUN unknown [facility] BILIRUBIN_TO unknown 0.4 unknown mg/dL BILIT unknow n unknown Clinic AJ [facility] BASOPHILS_AU unknown 0.0 10 unknown BA_ unknow n unknown Clinic TO_ 3/UL [facility] T unknown 0.0 10 unknown BASO_AUT unknown u [facility] 3/UL O_ [facility] T unknown 584 unknown pg/mL B12 unknown [facility] T unknown 1.6 unknown A_G_RATI unknown u [facility] O [facility] T unknown 22 unknown U/L AST unknown [facility] T unknown 36 unknown U/L ALT_SGPT unknown u [facility] _ [facility] ALT_ALANINE_ unknown 36 unknown U/L ALT unknow n unknown Clinic AMINOTRANSFER Primary ASE [facility] ALKALINE_PHO unknown 63 unknown U/L ALP unknow n unknown Clinic SPHATASE [facility] T unknown 63 unknown U/L ALK_PHOS unknown u [facility] T unknown 4.3 unknown g/dL ALB unknown [facility] ALBUMIN_GLOB unknown 1.6 unknown AGRATIO unkno wn unknown Clinic ULIN_RATIO [facility] T unknown 5.1 unknown % A1c_ unknown [facility] HEMOGLOBIN_A unknown 5.1 unknown % A1c unknow n unknown Clinic 1c_ [facility] THYROID_STIM unknown 0.0013 unknown m[iU]/ rTSH unknow n unknown Clinic ULATING_HORMO 1 mL Primary NE [facility] TSH unknown 0.0013 unknown m[iU]/ _[facility]20 [facility] 1 mL [facility] urea_nitroge unknown 17 unknown mg/dL _9 unknow n unknown Clinic n_blood [facility] Erythrocytes unknown 4.96 unknown _789-8 unknow n unknown Clinic _volume_in_Bl 10 6/UL Primary ood_by_Automa Care & ted_count [facility]illary [facility] Erythrocyte_ unknown 11.9 unknown % _788-0 unknow n unknown Clinic distribution_ Primary width_Ratio_b Care & y_Automated_c Ancillary ount [facility] MCV_Entitic_ unknown 93.8 unknown fL _787-2 unknow n unknown Clinic volume_by_Aut Primary omated_count Care & [facility] MCH_Entitic_ unknown 31.0 unknown pg _785-6 unknow n unknown Clinic mass_by_Autom Primary ated_count Care & [facility] Platelets_vo unknown 212 10 unknown _777-3 unknow n unknown Clinic lume_in_Blood 3/UL Primary _by_Automated Care & _count [facility]illary [facility] Platelet_mea unknown 10.2 unknown fL _776-5 unknow n unknown Clinic n_volume_Enti Primary tic_volume_in Care & _Blood_by_Ree Ancillary s-Grace Services [facility] neutrophil_c unknown 3.7 10 unknown _752-6 unknow n unknown Clinic ount_blood 3/UL [facility] monocyte_cou unknown 0.3 10 unknown _743-5 unknow n unknown Clinic nt_blood 3/UL [facility] lymphocyte_c unknown 1.3 10 unknown _732-8 unknow n unknown Clinic ount_blood 3/UL [facility] Hemoglobin_M unknown 15.4 unknown g/dL _718-7 unknow n unknown Clinic ass_volume_in Primary _Blood Care & [facility] eosinophil_c unknown 0.1 10 unknown _712-0 unknow n unknown Clinic ount_blood 3/UL [facility] Basophils_vo unknown 0.0 10 unknown _705-4 unknow n unknown Clinic lume_in_Blood 3/UL Primary _by_Manual_co Care & unt [facility]illary [facility] leukocyte_co unknown 5.4 unknown _68 unknow n unknown Clinic unt_blood X10 Primary 3/UL Care & [facility] erythrocyte_ unknown 4.96 unknown _67 unknow n unknown Clinic RBC_count 10 6/UL [facility] Leukocytes_v unknown 5.4 unknown _6690-2 unkno wn unknown Clinic olume_in_Bloo X10 Primary d_by_Automate 3/UL Care & d_count [facility]illary [facility] Glomerular_F unknown 73 unknown mL/min _66455 unknow n unknown Clinic iltration_rat Primary e [facility] platelet_cou unknown 212 10 unknown _66 unknow n unknown Clinic nt 3/UL [facility] hemoglobin_b unknown 15.4 unknown g/dL _65 unknow n unknown Clinic lood [facility] hematocrit_b unknown 46.5 unknown % _64 unknow n unknown Clinic lood [facility] potassium_bl unknown 4.4 unknown meq/L _6298-4 unkno wn unknown Clinic ood [facility] vitamin_b12_ unknown 584 unknown pg/mL _5585 unknow n unknown Clinic serum [facility] Glomerular_fi unknown 73 unknown mL/min _48642-3 unkn own unknown Clinic ltration_rate Primary _1.73_sq_M.pr Care & edicted_among Ancillary _non-blacks_V Services olume_Rate_Ar [facility] ea_in_Serum_P lasma_or_Bloo d_by_Creatini ne-based_form ula_MDRD_ [facility] Hemoglobin_A unknown 5.1 unknown % _4548-4 unkno wn unknown Clinic 1c_Hemoglobin Primary _total_in_Blo Care & od_-_ Ancillary [facility] Hematocrit_V unknown 46.5 unknown % _4544-3 unkno wn unknown Clinic olume_Fractio Primary n_of_Blood_by Care & _Automated_co Ancillary unt Services [facility] bilirubin_se unknown 0.4 unknown mg/dL _43 unknow n unknown Clinic rum_total [facility] alanine_amin unknown 36 unknown U/L _40 unknow n unknown Clinic otransferase_ Primary SGPT_serum Care & [facility] carbon_dioxi unknown 27 unknown mmol/L _3962 unknow n unknown Clinic de_serum_tota Primary l [facility] aspartate_am unknown 22 unknown U/L _39 unknow n unknown Clinic inotransferas Primary e_SGOT_serum Care & [facility] protein_tota unknown 7.0 unknown g/dL _36 unknow n unknown Clinic l_serum [facility] blood_glucos unknown 111 unknown mg/dL _3565 unknow n unknown Clinic e [facility] potassium_bl unknown 4.4 unknown meq/L _3483 unknow n unknown Clinic ood [facility] mean_corpusc unknown 93.8 unknown fL _315 unknow n unknown Clinic ular_volume_R Primary BC [facility] Urea_nitroge unknown 17 unknown mg/dL _3094-0 unkno wn unknown Clinic n_Mass_volume Primary _in_Serum_or_ Care & Plasma [facility] globulin_ser unknown 2.7 unknown _3059 unknow n unknown Clinic um [facility] alkaline_pho unknown 63 unknown U/L _3 unknow n unknown Clinic sphatase_seru Primary m [facility] Sodium_Moles unknown 138 unknown mmol/L _2951-2 unkno wn unknown Clinic _volume_in_Se Primary rum_or_Plasma Care [facility] Protein_Mass unknown 7.0 unknown g/dL _2885-2 unkno wn unknown Clinic _volume_in_Se Primary rum_or_Plasma Care [facility] eosinophil_c unknown 0.1 10 unknown _285 unknow n unknown Clinic ount_blood 3/UL [facility] hemoglobin_A unknown 5.1 unknown % _28 unknow n unknown Clinic 1C_blood_as_o Primary f_total_hemog Care & lobin [facility]illary [facility] anion_gap_se unknown 9.0 unknown _279 unknow n unknown Clinic rum [facility] mean_platele unknown 10.2 unknown fL _2784 unknow n unknown Clinic t_volume [facility] Glucose_mean unknown 100 unknown mg/dL _27353-2 unkn own unknown Clinic _value_Mass_v Primary olume_in_Bloo Care & d_Estimated_f Ancillary rom_glycated_ Services hemoglobin [facility] C-reactive_p unknown < 1.0 unknown _2704 unknow n unknown Clinic rotein_serum mg/dL [facility] basophil_cou unknown 0.0 10 unknown _2427 unknow n unknown Clinic nt_blood 3/UL [facility] monocyte_cou unknown 0.3 10 unknown _2422 unknow n unknown Clinic nt_blood 3/UL [facility] lymphocyte_c unknown 1.3 10 unknown _2420 unknow n unknown Clinic ount_blood 3/UL [facility] neutrophil_c unknown 3.7 10 unknown _2418 unknow n unknown Clinic ount_blood 3/UL [facility] Glucose_Mass unknown 111 unknown mg/dL _2345-7 unkno wn unknown Clinic _volume_in_Se Primary rum_or_Plasma Care & [facility]illary [facility] Globulin_Mas unknown 2.7 unknown _2335-07 unkno wn unknown Clinic s_volume_in_S Primary deana Care & [facility]illary [facility] Creatinine_M unknown 1.1 unknown mg/dL _ unkno wn unknown Clinic ass_volume_in Primary _Serum_or_Pla Care & sma [facility]illary [facility] Cobalamin_Vi unknown 584 unknown pg/mL _2131-10 unkno wn unknown Clinic tamin_B12_Mas Primary s_volume_in_S Care & erum_or_Plasm Ancillary a [facility] Chloride_Mol unknown 102 unknown mmol/L _ unkno wn unknown Clinic es_volume_in_ Primary Serum_or_Plas Care & ma Ancillary [facility] carbon_dioxi unknown 27 unknown mmol/L _2027-10 unkno wn unknown Clinic de_serum_tota Primary l Care [facility] Calcium_Mole unknown 10.0 unknown mg/dL _1999-09 unkno wn unknown Clinic s_volume_in_S Primary erum_or_Plasm Care & a [facility]illary [facility] albumin_seru unknown 4.3 unknown g/dL _2 unknow n unknown Clinic m [facility] C_reactive_p unknown < 1.0 unknown _1987-06 unkno wn unknown Clinic rotein_Mass_v mg/dL Primary olume_in_Seru Care & m_or_Plasma [facility]illary [facility] Bilirubin.to unknown 0.4 unknown mg/dL _1974-04 unkno wn unknown Clinic tal_Mass_volu Primary me_in_Serum_o Care & r_Plasma [facility] Aspartate_am unknown 22 unknown U/L _1919-09 unkno wn unknown Clinic inotransferas Primary e_Enzymatic_a Care & ctivity_volum Ancillary e_in_Serum_or Services _Plasma [facility] Anion_gap_4_ unknown 9.0 unknown _1862- unkno wn unknown Clinic in_Serum_or_P Primary lasma Care & Ancillary [facility] Estimated_Av unknown 100 unknown mg/dL _[id number] unkno wn unknown Clinic erage_Glucose [facility] creatinine_s unknown 1.1 unknown mg/dL _18 unknow n unknown Clinic deana [facility] Alkaline_pho unknown 63 unknown U/L _1783-0 unkno wn unknown Clinic sphatase_Enzy Primary matic_activit Care & y_volume_in_B Ancillary lood Services [facility] Albumin_Glob unknown 1.6 unknown _1759-0 unkno wn unknown Clinic ulin_Mass_Rat Primary io_in_Serum_o Care & r_Plasma [facility]illary [facility] Albumin_Mass unknown 4.3 unknown g/dL _1751-7 unkno wn unknown Clinic _volume_in_Se Primary rum_or_Plasma Care & [facility]illary [facility] Alanine_amin unknown 36 unknown U/L _1742-6 unkno wn unknown Clinic otransferase_ Primary Enzymatic_act Care & ivity_volume_ Ancillary in_Serum_or_P Services lasma [facility] mean_corpusc unknown 33.1 unknown g/dL _17029 unknow n unknown Clinic ular_hemoglob Primary in_concentrat Care & ion_rbc [facility]illary [facility] sodium_serum unknown 138 unknown mmol/L _159 unknow n unknown Clinic Primary [facility] albumin_glob unknown 1.6 unknown _146 unknow n unknown Clinic ulin_ratio_se Primary rum Care & Ancillary [facility] chloride_ser unknown 102 unknown mmol/L _13 unknow n unknown [facility] Thyrotropin_ unknown 0.0013 unknown m[iU]/ _11579-0 unkn own unknown Clinic Units_volume_ 1 mL Primary in_Serum_or_P Care & lasma_by_Dete Ancillary ction_limit_l Services t_0.05_mIU_L [facility] calcium_seru unknown 10.0 unknown mg/dL _11 unknow n unknown Clinic m [facility] mean_corpusc unknown 31.0 unknown pg _1031 unknow n unknown Clinic ular_hemoglob Primary in_RBC [facility] red_blood_ce unknown 11.9 unknown % _1030 unknow n unknown Clinic ll_distributi Primary on_width [facility] T unknown 5.4 unknown WBC unknown [facility] X10 Primary 3/UL [facility] T unknown 0.0013 unknown m[iU]/ TSH unknown [facility] 1 mL [facility] T unknown 0.4 unknown mg/dL TOTAL_BI unknown u [facility] LI [facility] T unknown 11.9 unknown % RDW unknown [facility] T unknown 4.96 unknown RBC unknown [facility] 10 6/UL [facility] T unknown 7.0 unknown g/dL PRO_TOTA unknown u [facility] L [facility] T unknown 212 10 unknown PLT unknown [facility] 3/UL [facility] NEUTROPHILS_ unknown 3.7 10 unknown NE_ unknow n unknown Clinic AUTO_ 3/UL [facility] T unknown 3.7 10 unknown NEUT_AUT unknown u [facility] 3/UL O_ [facility] T unknown 138 unknown mmol/L NA unknown [facility] T unknown 10.2 unknown fL MPV unknown [facility] MONOCYTES_AU unknown 0.3 10 unknown MO_ unknow n unknown Clinic TO_ 3/UL [facility] T unknown 0.3 10 unknown MONO_AUT unknown u [facility] 3/UL O_ [facility] T unknown 93.8 unknown fL MCV unknown [facility] T unknown 33.1 unknown g/dL MCHC unknown [facility] T unknown 31.0 unknown pg MCH unknown [facility] LYMPHOCYTES_ unknown 1.3 10 unknown LY_ unknow n unknown Clinic AUTO_ 3/UL [facility] T unknown 1.3 10 unknown LYMPH_AU unknown u [facility] 3/UL TO_ [facility] T unknown 4.4 unknown meq/L K unknown [facility] T unknown 15.4 unknown g/dL HGB unknown [facility] T unknown 46.5 unknown % HCT unknown [facility] T unknown 111 unknown mg/dL GLU unknown [facility] T unknown 2.7 unknown GLOB unknown [facility] T unknown 73 unknown mL/min GFR_-_MD unknown [facility] RD [facility] GFR_-_MDRD unknown 73 unknown mL/min GFR unknown unknown Clinic [facility] T unknown 9.0 unknown GAP unknown [facility] T unknown 100 unknown mg/dL EST.AVG. unknown [facility] GLUC [facility] EOSINOPHILS_ unknown 0.1 10 unknown EO_ unknow n unknown Clinic AUTO_ 3/UL [facility] T unknown 0.1 10 unknown EOS_AUTO unknown [facility] 3/UL _ [facility] ESTIMATED_AV unknown 100 unknown mg/dL EAG unknow n unknown Clinic ERAGE_GLUCOSE [facility] XTR_-_B-KGXZ unknown < 1.0 unknown CRP_WGH_ unkn own unknown Clinic TIVE_PROTEIN mg/dL [facility] T unknown < 1.0 unknown CRP unknown [facility] mg/dL [facility] T unknown 1.1 unknown mg/dL CREAT unknown [facility] T unknown 27 unknown mmol/L CO2 unknown [facility] T unknown 102 unknown mmol/L CL unknown [facility] T unknown 10.0 unknown mg/dL CA unknown [facility] T unknown 17 unknown mg/dL BUN unknown [facility] BILIRUBIN_TO unknown 0.4 unknown mg/dL BILIT unknow n unknown Clinic AJ [facility] BASOPHILS_AU unknown 0.0 10 unknown BA_ unknow n unknown Clinic TO_ 3/UL [facility] T unknown 0.0 10 unknown BASO_AUT unknown u [facility] 3/UL O_ [facility] T unknown 584 unknown pg/mL B12 unknown [facility] T unknown 1.6 unknown A_G_RATI unknown u [facility] O [facility] T unknown 22 unknown U/L AST unknown [facility] T unknown 36 unknown U/L ALT_SGPT unknown u [facility] _ [facility] ALT_ALANINE_ unknown 36 unknown U/L ALT unknow n unknown Clinic AMINOTRANSFER Primary ASE [facility] ALKALINE_PHO unknown 63 unknown U/L ALP unknow n unknown Clinic SPHATASE [facility] T unknown 63 unknown U/L ALK_PHOS unknown u [facility] T unknown 4.3 unknown g/dL ALB unknown [facility] ALBUMIN_GLOB unknown 1.6 unknown AGRATIO unkno wn unknown Clinic ULIN_RATIO [facility] T unknown 5.1 unknown % A1c_ unknown [facility] HEMOGLOBIN_A unknown 5.1 unknown % A1c unknow n unknown Clinic 1c_ [facility] Vital Signs date measurement value source 20210524 weight_standard 248 lb 20210524 weight_metric 112.49 kg 20210524 temperature_standard 98.2 F 20210524 temperature_metric 36.78 C 20210524 respiration_rate 16 /min 20210524 height_standard 69 in 20210524 height_metric 175.26 cm 20210524 heart_rate 72 /min 20210524 BP_systolic 118 mm[Hg] 20210524 BP_diastolic 73 mm[Hg] 20210524 BMI 36.76 kg/m2 20210524 weight_standard 248 lb 20210524 weight_metric 112.49 kg 20210524 temperature_standard 98.2 F 20210524 temperature_metric 36.78 C 20210524 respiration_rate 16 /min 20210524 height_standard 69 in 20210524 height_metric 175.26 cm 20210524 heart_rate 72 /min 20210524 BP_systolic 118 mm[Hg] 20210524 BP_diastolic 73 mm[Hg] 20210524 BMI 36.76 kg/m2 20210524 weight_standard 248 lb 20210524 weight_metric 112.49 kg 20210524 temperature_standard 98.2 F 20210524 temperature_metric 36.78 C 20210524 respiration_rate 16 /min 20210524 height_standard 69 in 20210524 height_metric 175.26 cm 20210524 heart_rate 72 /min 20210524 BP_systolic 118 mm[Hg] 20210524 BP_diastolic 73 mm[Hg] 20210524 BMI 36.76 kg/m2
[2021-06-11 16:55] LABS: BASOPHILS % (AUTO) 0.5 %; EOSINOPHILS # (AUTO) 0.1 10^3/uL (0.0-0.7); HCT - HEMATOCRIT 46.6 % (42.0-52.0); HGB - HEMOGLOBIN 15.9 g/dL (14.0-18.0); LYMPHOCYTES # (AUTO) 1.6 10^3/uL (1.5-3.5); LYMPHOCYTES % (AUTO) 25.4 %; MEAN CORPUSCULAR HEMOGLOBIN 31.7 pg (27.0-31.0); MEAN CORPUSCULAR HGB CONC 34.1 g/dL (32.0-36.0); MEAN PLATELET VOLUME 9.3 fL (7.4-11.4); MONOCYTES # (AUTO) 0.3 10^3/uL (0.0-1.0); MONOCYTES % (AUTO) 4.3 %; NEUTROPHILS # (AUTO) 4.3 10^3/uL (1.5-6.6); NEUTROPHILS % (AUTO) 68.5 %; PLT - PLATELET COUNT 180 10^3/uL (130-450); RED BLOOD COUNT 5.01 10^6/uL (4.70-6.10); RED CELL DISTRIBUTION WIDTH 12.2 % (12.0-15.0); WHITE BLOOD COUNT 6.3 x10^3/uL (4.8-10.8)
--- NOTE | 2021-06-11 17:03 | ED Physician Documentation ---
PD HPI FOCAL NEURO - Stated complaint Stated Complaint: DIZZY,WEAK - Chief complaint Chief Complaint: Neuro - History obtained from History obtained from: Patient - Additional information Additional information: 41-year-old gentleman with history of alcohol abuse recently in remission. Seen by my partner a few weeks ago after a fall, he fell and hit the back of his neck on a trampoline. He was drinking heavily at the time. Work-up on that visit was basically normal with notable elevated blood pressures, EKG without obvious acute changes, and negative cardiac enzymes. He has been tapering off on his alcohol and has not had a drink in 4 days. Continues to have a week off balance sensation which is admittedly slowly improving. It is worse when he is upright. He does not notice any focal weakness or numbness with it. He was seen in the clinic today and there was a concern for posterior circulation dissection given the mechanism of injury. Referred here for imaging for same. He does not have any neck pain now but was having some yesterday until he saw the chiropractor. Review of Systems Constitutional: reports: Fatigue Cardiac: reports: Palpitations (Chronic). denies: Chest pain / pressure Respiratory: reports: Dyspnea. denies: Cough GI: denies: Abdominal Pain, Nausea, Vomiting PD PAST MEDICAL HISTORY - Past Medical History Past Medical History: Yes Cardiovascular: None Respiratory: None Neuro: None Endocrine/Autoimmune: None GI: None : None HEENT: None Psych: Anxiety Musculoskeletal: None Derm: None - Past Surgical History Past Surgical History: No - Present Medications Home Medications: Ambulatory Orders Medication Instructions Recorded Confirmed Metoprolol Succinate [Toprol Xl] 25 mg PO DAILY #30 tablet 06/11/21 - Allergies Allergies/Adverse Reactions: Allergies Allergy/AdvReac Type Severity Reaction Status Date / Time No Known Drug Allergies Allergy Verified 06/11/21 16:36 - Social History Does the pt smoke?: Yes Smoking Status: Current every day smoker Does the pt drink ETOH?: Yes ETOH Use: Beer Does the pt have substance abuse?: No - Immunizations Immunizations are current?: No Immunizations: Other immun not current PD ED PE NORMAL - Vitals Vital signs reviewed: Yes - General General: Alert and oriented X 3, No acute distress - HEENT HEENT: PERRL, EOMI (Without nystagmus) - Neck Neck: Supple, no meningeal sign, No bony TTP - Cardiac Cardiac: RRR, No murmur - Respiratory Respiratory: No respiratory distress, Clear bilaterally - Abdomen Abdomen: Normal bowel sounds, Soft, Non tender - Back Back: No CVA TTP, No spinal TTP - Derm Derm: Normal color, Warm and dry - Neuro Neuro: Alert and oriented X 3, No motor deficit, No sensory deficit, Normal speech, Other (Normal xazgyi-gv-seem and holv-jy-ahza testing) Eye Opening: Spontaneous Motor: Obeys Commands Verbal: Oriented GCS Score: 15 Results - Vitals Vitals: Vital Signs - 24 hr 06/11/21 06/11/21 06/11/21 16:36 17:12 17:58 Temperature 36.3 C L Heart Rate 80 72 Respiratory 18 31 H 16 Rate Blood Pressure 162/97 H 172/92 H O2 Saturation 97 97 Oxygen O2 Source Room air - EKG (time done) 1710 Rate: Rate (enter#) (72) Rhythm: NSR [place]: Normal Intervals: Normal UT Ischemia: Q waves (inferior), Non specific changes Computer interpretation: Agree with computer - Labs Labs: Laboratory Tests 06/11/21 06/11/21 16:50 16:50 WBC 6.3 RBC 5.01 Hgb 15.9 Hct 46.6 MCV 93.0 MCH 31.7 H MCHC 34.1 RDW 12.2 Plt Count 180 MPV 9.3 Neut # (Auto) 4.3 Lymph # (Auto) 1.6 [place] # (Auto) 0.3 Eos # (Auto) 0.1 Baso # (Auto) 0.0 Absolute Nucleated RBC 0.00 Nucleated RBC % 0.0 Sodium 141 Potassium 3.8 Chloride 103 Carbon Dioxide 26 Anion Gap 12.0 BUN 23 H Creatinine 1.0 Estimated GFR (MDRD) 82 L Glucose 103 H Calcium 9.5 PD MEDICAL DECISION MAKING - ED course ED course: 41-year-old gentleman hit his head a few weeks ago and the back of his neck. He is having persistent off balance and dizziness and somewhat orthostatic 2. He appears well, noted to have some elevated blood pressures and has had elevated blood pressures at home as well. Also some chronic palpitations. That sounds benign and no arrhythmia or ectopy on the monitor here. EKG is unchanged. CT angiography of the head and neck is without acute finding. His BUN is up a bit. I suspect his symptoms are multifactorial. I think part of it is postconcussive syndrome from hitting the back of his head and neck. He quit drinking alcohol and that put him under some physiologic stress as well, finally he is on a all meat/keto diet and suspect that has made him somewhat dehydrated and just feeling bad. We discussed all this. We will start a beta-buffy for elevated blood pressures and palpitations. Advise close primary care follow-up. Departure - Departure Disposition: 01 Home, Self Care Clinical Impression: Dizziness, Elevated blood pressure reading Concussion Qualifiers: Encounter type: initial encounter Loss of consciousness presence/duration: without LOC Qualified Code(s): S06.0X0A - Concussion without loss of consciousness, initial encounter Condition: Good Record reviewed to determine appropriate education?: Yes Instructions: ED Dizziness UKO Follow-Up: [facility] [Provider Group] Fina Donovan ARNP [Physician No Access] - Prescriptions: Metoprolol Succinate [Toprol Xl] 25 mg PO DAILY #30 tablet Comments: I sent prescription to [facility] in [place]. As discussed I think your dizziness is probably multifactorial from concussive syndrome, dehydration from the keto diet, and resolving alcohol withdrawal. I am starting low-dose blood pressure medication known as a beta-buffy which should help with palpitations and her blood pressure. It may also help with alcohol craving. It is important to follow-up with a primary care physician, I am putting some numbers on this form that you can try.
[2021-06-11 17:04] LABS: CALCIUM 9.5 mg/dL (8.5-10.3); POTASSIUM 3.8 mmol/L (3.5-5.0)
[2021-06-11] MEDS ORDERED: SODIUM CHLORIDE 0.9% 1,000 ML IV STA (17:47)
--- NOTE | 2021-06-11 17:55 | CT Report ---
PROCEDURE: ANGIO HEAD W/WO INDICATIONS: Vertigo/dizzy status post neck injury CONTRAST: IV CONTRAST: Optiray 320 ml: 80 PO CONTRAST: *NO PO CONTRAST TECHNIQUE: Precontrast 4.5 mm thick angled axial sections acquired from the foramen magnum to the vertex. Afte r the administration of intravenous contrast, 1 mm thick sections acquired through the [place] of [place] is. Postcontrast 4.5 mm thick sections then re-acquired from the foramen magnum to the vertex. 3-di mensional yubzqlw-gzbljbylz-amrwoefsrv (MIP) and/or volume rendering reformats were acquired of the c entral intracranial vasculature. For radiation dose reduction, the following was used: automated ex posure control, adjustment of mA and/or kV according to patient size. COMPARISON: Correlation is made with the accompanying neck CT angiogram, 06/11/2021. FINDINGS: Image quality: Limited by bolus timing with venous contamination. Anterior circulation: Intracranial internal carotid arteries are normal in size and flow. The flow within the paired anterior cerebral arteries is normal and symmetric. The flow within the middle cer ebral arteries is normal and symmetric. The anterior communicating artery is seen. No aneurysms are seen. Posterior circulation: Visualized portions of the vertebral arteries demonstrate normal caliber, and join to form a normal appearing basilar artery. Incidental note is made of a prominent left posteri or communicating artery, with a diminutive left P1 segment. This is attributed to a type origin of the left posterior cerebral artery, which is considered to be a developmental variant of typicall y no clinical consequence. Flow within the posterior cerebral arteries is normal and symmetric. N o aneurysms are seen. CSF spaces: Ventricles are normal in size and shape. Basal cisterns are patent. No extra-axial flu id collections. Brain: No midline shift. No intracranial bleeds or masses. Jerry-white matter interface appears int act. Note is made of dense calcification along the anterior falx, which is not regarded to be frankl y pathologic. Skull and face: Calvarium and facial bones appear intact, without suspicious lesions. Sinuses: Visualized sinuses and mastoids are clear. IMPRESSION: No intracranial hemorrhage is seen. No significant intracranial abnormality is seen. No significant intracranial arterial abnormalities are seen. Reviewed by: Kashif Zuniga MD on 06/11/2021 4:53 PM DRE Approved by: Kashif Zuniga MD on 06/11/2021 4:53 PM DRE Station ID: [id number]
--- NOTE | 2021-06-11 17:56 | CT Report ---
PROCEDURE: ANGIO NECK W INDICATIONS: Vertigo/dizzy status post neck injury CONTRAST: IV CONTRAST: Optiray 320 ml: 80 PO CONTRAST: *NO PO CONTRAST TECHNIQUE: After the administration of intravenous contrast, 1.5 mm axial sections acquired from the aortic arch to the [place] of [place]. Coronal 3-D maximum intensity projection (MIP) and/or volume rendering ref ormats were then performed. For radiation dose reduction, the following was used: automated exposur e control, adjustment of mA and/or kV according to patient size. COMPARISON: Correlation is made with the accompanying head CT angiogram, 06/11/2021. FINDINGS: Image quality: Excellent. Carotid system: The great vessels demonstrate a conventional anatomy as they arise from the aortic a rch. The origins of the common carotid arteries appear patent. The common carotid arteries demonstr ate normal calibers and courses. The bifurcation regions appear normal bilaterally. The internal ca rotid arteries demonstrate normal caliber. Note is made of tortuosity of the internal carotid arterie s, right worse than left. Posterior circulation: The origins of the vertebral arteries appear patent. The more superior porti ons of the vertebral arteries demonstrate normal course and caliber. They join to form a normal appe aring basilar artery. Soft tissues: Visualized neck soft tissues demonstrate no suspicious abnormalities. The thyroid is normal in size and there are no incidental findings. Bones: In this patient with this given history, scrutiny is given to the cervical spine in this lorena ent with a history of trauma. No displaced fractures are detected. No suspicious bony lesions. Visua lized cervical spine appears normally aligned. IMPRESSION: No hemodynamically significant stenosis can be seen within the arteries of the neck. No findings of dissection are detected within the carotid or within the vertebral system. No cervical spine fractures are seen. The estimate of stenosis included in the report of the imaging study was calculated using the NASCET method Reviewed by: Kashif Zuniga MD on 06/11/2021 4:55 PM DRE Approved by: Kashif Zuniga MD on 06/11/2021 4:55 PM DRE Station ID: [id number]
[2021-06-11] MEDS ORDERED: METOPROLOL SUCCINATE 25 MG TABLET PO STA (18:13)
[2021-06-11 19:23] VITALS: BP 157/99
== END 2021-06-11 19:15 | disposition home or self-care (01) ==
LOC: ED 16:32
DX: S06.0X0A Concussion without loss of consciousness, initial encounter (principal); W17.89XA Other fall from one level to another, initial encounter; R03.0 Elevated blood-pressure reading, without diagnosis of hypertension; F17.200 Nicotine dependence, unspecified, uncomplicated
CPT/HCPCS: 36415; 70496; 70498; 80048; 85025; 93005; 96360; 99282; 99284; A9270; Q9967

== ENCOUNTER 2021-12-18 12:24 | Outpatient (CLI) | payer MEDICAID ==
[2021-12-18 14:10] LABS: BASOPHILS # (AUTO) 0.1 10^3/uL (0.0-0.1); EOSINOPHILS # (AUTO) 0.1 10^3/uL (0.0-0.7); EOSINOPHILS % (AUTO) 2.1 %; HCT - HEMATOCRIT 47.2 % (42.0-52.0); HGB - HEMOGLOBIN 15.5 g/dL (14.0-18.0); LYMPHOCYTES % (AUTO) 37.6 %; MEAN CORPUSCULAR HEMOGLOBIN 31.3 pg (27.0-31.0); MEAN CORPUSCULAR HGB CONC 32.8 g/dL (32.0-36.0); MEAN CORPUSCULAR VOLUME 95.4 fL (80.0-94.0); MONOCYTES # (AUTO) 0.3 10^3/uL (0.0-1.0); MONOCYTES % (AUTO) 4.8 %; NEUTROPHILS # (AUTO) 2.9 10^3/uL (1.5-6.6); NEUTROPHILS % (AUTO) 54.3 %; PLT - PLATELET COUNT 202 10^3/uL (130-450); RED BLOOD COUNT 4.95 10^6/uL (4.70-6.10); RED CELL DISTRIBUTION WIDTH 12.3 % (12.0-15.0); WHITE BLOOD COUNT 5.2 x10^3/uL (4.8-10.8)
[2021-12-18 14:24] LABS: ALBUMIN 4.2 g/dL (3.2-5.5); ALBUMIN/GLOBULIN RATIO 1.7 (1.0-2.2); BILIRUBIN,TOTAL 0.9 mg/dL (0.2-1.0); CALCIUM 9.4 mg/dL (8.5-10.3); POTASSIUM 4.3 mmol/L (3.5-5.0); TOTAL PROTEIN 6.7 g/dL (6.7-8.2)
[2021-12-18 14:53] LABS: THYROID STIMULATING HORMONE 2.47 uIU/mL (0.34-5.60)
== END 2021-12-18 12:25 | disposition home or self-care (01) ==
LOC: LAB.S 12:24
PROVIDERS: ATTEND Family Medicine
DX: R42 Dizziness and giddiness (principal); R53.83 Other fatigue
CPT/HCPCS: 36415; 80050; 84403

== ENCOUNTER 2022-05-16 10:45 | Outpatient (CLI) | payer MEDICAID ==
[2022-05-16 12:41] LABS: PSA FREE 0.261 ng/mL (0.16-2.81)
[2022-05-16 12:42] LABS: PSA TOTAL 0.519 ng/mL (0.000-2.000)
== END 2022-05-16 10:46 | disposition home or self-care (01) ==
LOC: LAB 10:45
PROVIDERS: ATTEND Family Medicine
DX: E29.1 Testicular hypofunction (principal); R53.83 Other fatigue
CPT/HCPCS: 36415; 84153; 84154

== ENCOUNTER 2022-07-03 08:34 | Outpatient (CLI) | payer MEDICAID ==
--- NOTE | 2022-07-03 09:15 | Sleep Patient Instructions ---
Sleep Center Visit Summary - Patient Visit Information Reason for Visit: Initial consult for evaluation of sleep disordered breathing and other sleep issues. - Patient Instructions Instructions Attached: Sleep Study, Sleep Clinic Visit Additional Instructions: You will be completing a sleep study, either an in-lab polysomnography (PSG) or home sleep study (HST). You will follow-up in the sleep care office after the sleep study is completed to hear the results and talk about therapy, if needed. You will be called by our office staff to schedule this appointment, but you may contact us with any questions. - Clinic Information Contact: [facility] [address] [place] [address] [email or web address] T: [phone]
--- NOTE | 2022-07-03 09:31 | SLEEP CARE CONSULTATION ---
Information from patient questionnaire entered by Carmita No. I have reviewed and concur with the information entered by Carmita No. This document represents the service I personally performed and the decisions made by me, Edelmira Nuñez ARNP. History of Present Illness Service Date and Time: 07/03/2022 08 Reason for Visit: New patient Chief Complaint: reports: Unrefreshed sleep, Fatigue Date of Onset: 2YRS Usual bedtime: 9PM Time it takes to fall asleep: 30MINS Snores at night: Yes Observed to quit breathing while asleep: No Sleeps alone due to snoring: No Number of times waking at night: 2 Reasons for waking at night: reports: Bathroom. denies: Choking, Snoring, Gasping for air Toss, Turn, or Twitch while sleeping: Yes Recalls having dreams: Yes (occasionally) Usually gets out of bed at: 5AM; weekends 7-8 am Feels refreshed in the morning: No Morning headache: No Sleepy or fatigued during the day: Yes Ever fallen asleep while driving: No (has drowsy driving in last 2 months, causing anxiety) Takes day naps: No Dreams during day naps: No Prior sleep studies: No Additional HPI information: I had the pleasure of seeing HAN POOL today regarding the possibility of him having a sleep disorder. His current complaints are unrefreshed sleep and fatigue. He is here for evaluation because he wakes up feeling exhausted. He has anxiety and some mood swings for the last year or more. He states his girlfriend says he snores occasionally but has never noted pauses in breathing. 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 Patient is Single and lives in . Have you smoked in the past 12 months: Yes Cigarettes per day (20/pack): 1 Years of smokin Smoking Pack Years: 0 Alcohol use: Yes Alcohol amount and frequency: 12 WEEKENDS Caffeine use: Yes Caffeine amount and frequency: 1 OCCASSIONALLY Family History Family history of sleep disordered breathing: No Allergies and Home Medications Known drug allergies: No Drug allergies reviewed: Yes Home medication list reviewed: Yes Allergy and home medication list: Allergies No Known Drug Allergies Allergy (Verified 07/02/22 11:28) Medications: medication for anxiety, as needed: he cannot remember name Review of Systems Weight loss over past 5 years: 41 lb loss, controlling portions Cardiovascular: denies: high blood pressure Gastrointestinal: denies: heartburn Neurological: denies: headaches Psychiatric: reports: anxiety. denies: depression Ear/Nose/Throat: denies: tonsillectomy Endocrine: reports: sluggishness Physical Exam Vital signs obtained and entered by: CARMITA Thornton MA Blood Pressure: 132/82 (LEFT ARM) Cuff size: regular Heart Rate: 88 O2 Saturation: 96 Height: 5 ft 9 in Weight: 229 lb 12.8 oz Body Mass Index: 33.9 BMI Classification: Obese Neck circumference: 16.75 Mouth and throat: narrow oropharynx Soft palate: long Hard palate: arched Uvula: long Uvula visualization: 25% Mallampati Class III Tongue: enlarged in size with teeth fields on lateral edges Tonsils: 1+ Neck: normal w/o lymphadenopathy or thyromegaly Heart: regular rate and rhythm Lungs: clear bilaterally Impression and Plan 1. Suspected Obstructive Sleep Apnea-Hypopnea Syndrome, as suggested by a history of loud and irregular snoring, unrefreshed sleep, and daytime fatigue. Narrow oropharynx and obesity are common predisposing factors for obstructive sleep apnea-hypopnea syndrome. I recommend proceeding to polysomnography to confirm the diagnosis and to assess severity. If the patient has significant sleep disordered breathing, a manual CPAP titration study will also be performed to find the optimal treatment pressure. I informed the patient of what the sleep studies involve and after some discussion, obtained agreement to proceed. The pathophysiology of obstructive sleep apnea-hypopnea syndrome was discussed with the patient and health risks of cardiovascular and cerebrovascular disease if not treated. Risks of drowsy driving discussed in detail and patient advised to avoid long distance driving and to casing puller at the first sign of drowsiness. Patient agreed to plan. * Schedule polysomnography +- manual CPAP titration study and return in 1-2 weeks after the study to discuss result and initiate therapy. * Avoid long distance driving or driving when feeling sleepy. * Avoid alcohol, sedative and muscle relaxant around bedtime. * Attempt to lose weight. * Review instructions provided by trained office staff on how to prepare for the sleep study. * Return for follow-up after sleep study completed. Counseling Topics: Weight loss health impact Visit Type: In Office Time Spent with Patient (minutes): 32 Provider Statement: I spent 100% of the Face to Face Visit with the patient with greater than 50% spent counseling the patient and coordination of care.
[2022-07-03 09:40] VITALS: BP 132/82
== END 2022-07-03 08:35 | disposition home or self-care (01) ==
LOC: SC 08:34
PROVIDERS: ATTEND Nurse Practitioner Family
DX: R06.83 Snoring (principal); G47.8 Other sleep disorders; R53.83 Other fatigue; E66.9 Obesity, unspecified; Z68.33 Body mass index [BMI] 33.0-33.9, adult; F17.210 Nicotine dependence, cigarettes, uncomplicated
CPT/HCPCS: 99203; 99212

== ENCOUNTER 2022-10-01 08:52 | Outpatient (CLI) | payer MEDICAID | END 2022-10-01 08:53 | disposition home or self-care (01) | LOC: SC 08:52 | PROVIDERS: ATTEND Nurse Practitioner Family | DX: G47.33 Obstructive sleep apnea (adult) (pediatric) (principal); R09.02 Hypoxemia; E66.9 Obesity, unspecified; Z68.33 Body mass index [BMI] 33.0-33.9, adult | CPT/HCPCS: 95806 ==

== ENCOUNTER 2022-10-09 15:07 | Outpatient (CLI) | payer MEDICAID ==
--- NOTE | 2022-10-09 15:08 | SLEEP CARE CONSULTATION ---
Information from patient questionnaire entered by Chana No. I have reviewed and concur with the information entered by Chana No. This document represents the service I personally performed and the decisions made by , Edelmira Nuñez ARNP. History of Present Illness Service Date and Time: 10/09/2022 1500 Initial [place] Sleepiness Scale score: 1 (06/05/22) Current [place] Sleepiness Scale score: 12 (10/09/22) Additional HPI information: HAN POOL returns via video telehealth visit for follow up and results of the recently performed home sleep study. I explained the pathophysiology behind obstructive sleep apnea. We then spent quite a bit of time discussing different treatment options. For mild obstructive sleep apnea, surgery and oral appliance are alternatives to nasal CPAP therapy but in moderate or severe cases, nasal CPAP is the most effective and reliable treatment. I reviewed the impact of weight changes on sleep apnea and strongly recommended losing weight. Patient counseled not drink alcohol less than 4 hours before bedtime as it can increase snoring and apnea. Patient was cautioned about risks of drowsy driving until sleepiness symptoms resolve. Patient denies drowsy driving. Sleep Study - Results Type of Sleep Study: Home sleep study (COMPLETED 10/01/22) Prior sleep studies: No Polysomnography/Home Sleep Study results: Physician Impression: The quality of the study is fair due to partial loss of pulse oximetry signal. The length of the study is adequate (> 240 minutes). Please also see the tabulated and graphic data. 1. Obstructive Sleep Apnea-Hypopnea (ICD-10 G47.33), mild, with an AHI of 6.3/hr and naty SaO2 of 80%. During the study, the patient had 3 apneas (3 obstructive, 0 central, 0 mixed) and 25 hypopneas. The longest episode lasted 80.5 seconds. The respiratory events occurred independently of sleep stage and body position (supine AHI was 5.4 and non-supine, 7.03). 2. Hypoxemia (ICD-10 R09.02), mild, with the lowest oxygen saturation of 80 % and 25.8 minutes with SaO2 under 90%. Baseline oxygen saturation was normal (Average oxygen saturation was 92%). Allergies and Home Medications Known drug allergies: No Drug allergies reviewed: Yes Home medication list reviewed: Yes (no changes) Allergy and home medication list: Allergies No Known Drug Allergies Allergy (Verified 10/08/22 15:12) Review of Systems Review of systems same as previous: Yes (no changes) Physical Exam Vital signs obtained and entered by: CHANA Thornton MA Height: 5 ft 9 in (PER PT) Weight: 228 lb (PER PT) Body Mass Index: 33.6 BMI Classification: Obese Impression and Plan 1. Obstructive Sleep Apnea-Hypopnea Syndrome, mild, with lowest oxygen saturation of 80%. Obviously this is the cause of the patients symptoms of unrefreshed sleep, and excessive daytime sleepiness. Positive pressure therapy could benefit anxiety. The patient would like to try an oral appliance to treat their apnea. A month follow up will be made once he has his oral appliance to see if appliance has reduced symptoms. If so, another polysomnography will be ordered with use of the oral appliance to check efficacy in reducing apnea. 2. Hypoxemia, mild, with a naty oxygen saturation of 80% and 25.8 minutes spent under 90%. His baseline oxygen saturation was normal with an average oxygen sa turation of 92%. 3. Obesity, unspecified. Currently patients BMI is 33.6. Obesity increases the risk of apnea, CPAP pressure requirements and overall health risks especially cardiovascular and diabetes. Thus patient is advised to lose weight. * Oral Appliance. * Attempt to lose weight. * Avoid alcohol consumption near bedtime. * Sleep with head elevated until able to use Oral appliance * The patient is again cautioned about driving until sleepiness completely resolves. * Return one month after Oral appliance obtained. I will assess response to therapy at that time. Counseling Topics: Weight loss health impact Visit Type: Telehealth Video Video Type: [place] Patient Location: Home Location of Provider: Office Patient agrees and consents to this telehealth visit type: Yes Time Spent with Patient (minutes): 20 Provider Statement: I spent 100% of the Telehealth Video Call with the patient with greater than 50% spent counseling the patient and coordination of care.
== END 2022-10-09 15:08 | disposition home or self-care (01) ==
LOC: SC 15:07
PROVIDERS: ATTEND Nurse Practitioner Family
DX: G47.33 Obstructive sleep apnea (adult) (pediatric) (principal); R09.02 Hypoxemia; E66.9 Obesity, unspecified; Z68.33 Body mass index [BMI] 33.0-33.9, adult

== ENCOUNTER 2022-10-15 08:53 | Outpatient (CLI) | payer MEDICAID ==
[2022-10-15 15:00] LABS: PROLACTIN 4.99 ng/mL
[2022-10-16 07:10] LABS: ESTRADIOL 13.2 pg/mL (7.6-42.6)
[2022-10-16 16:08] LABS: FREE TESTOSTERONE(DIRECT) 10.2 pg/mL (6.8-21.5)
== END 2022-10-15 08:54 | disposition home or self-care (01) ==
LOC: LAB.S 08:53
PROVIDERS: ATTEND Urology
DX: E29.1 Testicular hypofunction (principal)
CPT/HCPCS: 36415; 82670; 83002; 84146; 84402; 84403

== ENCOUNTER 2022-11-30 10:17 | Outpatient (CLI) | payer MEDICAID ==
[2022-11-30 16:18] LABS: PROLACTIN 8.1 ng/mL
[2022-11-30 20:01] LABS: BILIRUBIN,URINE NEGATIVE (NEGATIVE); GLUCOSE, URINE (UA) NEGATIVE (NEGATIVE); KETONES,URINE (UA) TRACE mg/dL (NEGATIVE); LEUKOCYTE ESTERASE, URINE NEGATIVE (NEGATIVE); NITRITE,URINE NEGATIVE (NEGATIVE); OCCULT BLOOD,URINE NEGATIVE (NEGATIVE); PROTEIN,URINE NEGATIVE (NEGATIVE); UROBILINOGEN,URINE 0.2 (NORMAL) E.U./dL (NORMAL)
[2022-11-30 20:26] LABS: BACTERIA,URINE None Seen /HPF (None Seen); CLARITY,URINE CLEAR (CLEAR); CRYSTALS,URINE 26-50 Ca Oxalate /LPF; RBC,URINE None Seen /HPF (0-5); SQUAMOUS EPITHELIAL CELL,UR NONE SEEN (<= Few); WBC,URINE 0-3 /HPF (0-3)
[2022-12-01 06:10] LABS: ESTRADIOL 53.9 pg/mL (7.6-42.6)
[2022-12-01 19:07] LABS: FREE TESTOSTERONE(DIRECT) 25.2 pg/mL (6.8-21.5)
== END 2022-11-30 10:18 ==
LOC: LAB.S 10:17
PROVIDERS: ATTEND Urology
DX: E29.1 Testicular hypofunction (principal); R39.9 Unspecified symptoms and signs involving the genitourinary system
CPT/HCPCS: 36415; 81001; 82670; 83002; 84146; 84402; 84403; 87086

== ENCOUNTER 2022-12-29 11:39 | Outpatient (CLI) | payer MEDICAID | END 2022-12-29 11:40 | disposition home or self-care (01) | LOC: LAB.S 11:39 | PROVIDERS: ATTEND Urology | DX: E29.1 Testicular hypofunction (principal) | CPT/HCPCS: 36415; 84403 ==

== ENCOUNTER 2023-04-06 10:09 | Outpatient (CLI) | payer MEDICAID ==
[2023-04-06 14:49] LABS: BASOPHILS % (AUTO) 0.9 %; EOSINOPHILS # (AUTO) 0.1 10^3/uL (0.0-0.7); EOSINOPHILS % (AUTO) 2.1 %; HCT - HEMATOCRIT 48.6 % (42.0-52.0); HGB - HEMOGLOBIN 16.3 g/dL (14.0-18.0); LYMPHOCYTES # (AUTO) 1.4 10^3/uL (1.5-3.5); LYMPHOCYTES % (AUTO) 32.6 %; MEAN CORPUSCULAR HEMOGLOBIN 32.9 pg (27.0-31.0); MEAN CORPUSCULAR HGB CONC 33.5 g/dL (32.0-36.0); MEAN CORPUSCULAR VOLUME 98.2 fL (80.0-94.0); MEAN PLATELET VOLUME 9.8 fL (7.4-11.4); MONOCYTES # (AUTO) 0.3 10^3/uL (0.0-1.0); MONOCYTES % (AUTO) 7.1 %; NEUTROPHILS # (AUTO) 2.5 10^3/uL (1.5-6.6); NEUTROPHILS % (AUTO) 57.1 %; PLT - PLATELET COUNT 208 10^3/uL (130-450); RED BLOOD COUNT 4.95 10^6/uL (4.70-6.10); RED CELL DISTRIBUTION WIDTH 12.5 % (12.0-15.0); WHITE BLOOD COUNT 4.4 x10^3/uL (4.8-10.8)
== END 2023-04-06 10:10 | disposition home or self-care (01) ==
LOC: LAB.S 10:09
PROVIDERS: ATTEND Urology
DX: E29.1 Testicular hypofunction (principal)
CPT/HCPCS: 36415; 82670; 84403; 85025

== ENCOUNTER 2023-04-22 08:49 | Outpatient (CLI) | payer MEDICAID ==
[2023-04-22 09:05] LABS: BASOPHILS % (AUTO) 0.8 %; EOSINOPHILS # (AUTO) 0.1 10^3/uL (0.0-0.7); EOSINOPHILS % (AUTO) 1.8 %; HGB - HEMOGLOBIN 16.5 g/dL (14.0-18.0); LYMPHOCYTES # (AUTO) 1.6 10^3/uL (1.5-3.5); LYMPHOCYTES % (AUTO) 31.8 %; MEAN CORPUSCULAR HEMOGLOBIN 32.4 pg (27.0-31.0); MEAN CORPUSCULAR HGB CONC 33.7 g/dL (32.0-36.0); MEAN CORPUSCULAR VOLUME 96.1 fL (80.0-94.0); MONOCYTES # (AUTO) 0.3 10^3/uL (0.0-1.0); MONOCYTES % (AUTO) 5.7 %; NEUTROPHILS # (AUTO) 3.1 10^3/uL (1.5-6.6); NEUTROPHILS % (AUTO) 59.7 %; PLT - PLATELET COUNT 218 10^3/uL (130-450); RED CELL DISTRIBUTION WIDTH 11.9 % (12.0-15.0); WHITE BLOOD COUNT 5.1 x10^3/uL (4.8-10.8)
[2023-04-22 09:16] LABS: ALBUMIN 4.5 g/dL (3.2-5.5); BILIRUBIN,TOTAL 0.6 mg/dL (0.2-1.0); CALCIUM 9.6 mg/dL (8.5-10.3); CREATININE 1.1 mg/dL (0.6-1.3); POTASSIUM 4.3 mmol/L (3.5-4.5); TOTAL PROTEIN 6.7 g/dL (6.4-8.9)
[2023-04-22 09:31] LABS: THYROID STIMULATING HORMONE 1.9 uIU/mL (0.34-5.60)
[2023-04-22 09:53] LABS: INFLUENZA A- RESP PCR PANEL NOT DETECTED; INFLUENZA B - RESP PCR PANEL NOT DETECTED; RSV- RESP PCR PANEL NOT DETECTED; SARS-CoV-2 -RESP PCR PANEL NOT DETECTED
[2023-04-22 10:47] LABS: ESTIMATED AVERAGE GLUCOSE 103 mg/dL (70-100); HEMOGLOBIN A1c% 5.2 % (4.27-6.07)
--- NOTE | 2023-04-22 11:10 | XRAY Report ---
PROCEDURE: Chest 2V INDICATIONS: SHORTNESS OF BREATH TECHNIQUE: 2 views of the chest were acquired. COMPARISON: Chest x-ray 05/18/2021. FINDINGS: Surgical changes and devices: None. Lungs and pleura: No pleural effusions or pneumothorax. Lungs are clear. Mediastinum: Mediastinal contours appear normal. Heart size is normal. Bones and chest wall: No suspicious bony lesions. Overlying soft tissues appear unremarkable. IMPRESSION: No acute cardiopulmonary process. Reviewed by: Srinivas Palacios MD on 04/22/2023 11:08 AM PST Approved by: Srinivas Palacios MD on 04/22/2023 11:08 AM PST Station ID: [id number]
== END 2023-04-22 08:50 | disposition home or self-care (01) ==
LOC: LAB 08:49
PROVIDERS: ATTEND Registered Nurse
DX: E16.2 Hypoglycemia, unspecified (principal); R42 Dizziness and giddiness; R06.02 Shortness of breath; R53.83 Other fatigue; G47.33 Obstructive sleep apnea (adult) (pediatric); E29.1 Testicular hypofunction; F10.10 Alcohol abuse, uncomplicated; F17.200 Nicotine dependence, unspecified, uncomplicated; R00.2 Palpitations
CPT/HCPCS: 36415; 80050; 83036; 83690; 87637

== ENCOUNTER 2023-04-30 07:38 | Outpatient (CLI) | payer MEDICAID ==
--- NOTE | 2023-04-30 14:16 | Ultrasound Report ---
PROCEDURE: Abdomen Limited INDICATIONS: ALCOHOL ABUSE TECHNIQUE: Real-time focused scanning was performed of the abdomen, with image documentation. COMPARISONS: None. FINDINGS: Liver: Increased liver echogenicity, commonly mild hepatic steatosis. Gallbladder: Unremarkable. Biliary ducts: Intrahepatic bile ducts are non-dilated. Extrahepatic bile duct caliber measures 3 m m. Normal is 6-7 mm or less in diameter, or 10 mm or less post-cholecystectomy. Pancreas: Visualized portions of the pancreas are sonographically normal. Right kidney: Normal in size and echotexture. Right kidney measures 11 cm long. No hydronephrosis or nephrolithiasis. No solid masses. No complex renal cystic lesions which require follow-up. IVC: Intrahepatic inferior vena cava is patent. Miscellaneous: No free abdominal fluid. IMPRESSION: Increased liver echogenicity, likely mild hepatic steatosis. Reviewed by: Florencio Reece MD on 04/30/2023 2:15 PM PST Approved by: Florencio Reece MD on 04/30/2023 2:15 PM PST Station ID: [id number]
== END 2023-04-30 07:39 | disposition home or self-care (01) ==
LOC: DI 07:38
PROVIDERS: ATTEND Registered Nurse
DX: R00.2 Palpitations (principal); R06.02 Shortness of breath; E16.2 Hypoglycemia, unspecified; R42 Dizziness and giddiness; R53.83 Other fatigue; G47.33 Obstructive sleep apnea (adult) (pediatric); E29.1 Testicular hypofunction; F10.10 Alcohol abuse, uncomplicated; F17.200 Nicotine dependence, unspecified, uncomplicated; R93.2 Abnormal findings on diagnostic imaging of liver and biliary tract

== ENCOUNTER 2023-08-05 09:55 | Day surgery (SDC) | payer MEDICAID ==
[2023-08-05] MEDS: LACTATED RINGERS 1,000 ML IV ONE ×2 (10:00→12:21)
--- NOTE | 2023-08-05 10:44 | ANESTHESIA ---
Pre-Anesthesia VS, & Labs - Diagnosis cyst x3 - Procedure cyst excision x3 Height: 5 ft 9 in Weight (kg): 111.6 kg Body Mass Index: 36.3 BMI Classification: Obese - NPO >8 hours Home Medications and Allergies No Known Home Medications 07/03/22 Allergies/Adverse Reactions: Allergies Allergy/AdvReac Type Severity Reaction Status Date / Time No Known Drug Allergies Allergy Verified 10/09/22 14:41 Anes History & Medical History - Anesthetic History Anesthesia Complications: reports: No previous complications Family history of Anesthesia Complications: Denies Family history of Malignant Hyperthermia: Denies - Medical History Cardiovascular: reports: None Pulmonary: reports: None Gastrointestinal: reports: None Urinary: reports: None Neuro: reports: None Musculoskeletal: reports: None Endocrine/Autoimmune: reports: None Blood Disorders: reports: None Skin: reports: None Smoking Status: Former smoker (stopped 4 mo ago per patient) Psychosocial: reports: No issues indicated History of Cancer?: No Results - EKG Results EKG Comparison: Reviewed EKG, Normal EKG Exam General: Alert, Oriented x3, Cooperative, No acute distress Dental: Poor dentition Mouth Openin Fingerbreadth Neck Mobility: Normal Mallampati classification: III Thyromental Distance: 4-6 cm Respiratory: Lungs clear, Normal breath sounds, No respiratory distress, No accessory muscle use Cardiovascular: Regular rate, Normal S1, Normal S2, No murmurs Mental/Cognitive Status: Alert/Oriented X3, Normal for patient Cognitive Status: Within normal limits Plan Anesthesia Type: General Consent for Procedure(s) Verified and Reviewed: Yes Code Status: Attempt Resuscitation ASA classification: 2-Mild systemic disease Is this case an emergency?: No
[2023-08-05] MEDS ORDERED: LIDOCAINE 1%-EPI 1:100000 20 ML MDV ONE (10:54)
[2023-08-05] MEDS ORDERED: BUPIVACAINE 0.25% PF 30 ML VIAL ONE (10:54)
[2023-08-05] MEDS ORDERED: GLYCOPYRROLATE 1 MG/5 ML VIAL ONE (11:01)
[2023-08-05] MEDS ORDERED: LIDOCAINE-PF 2% 10 ML AMP SUBQ ONE (11:02)
[2023-08-05] MEDS ORDERED: fentaNYL 100 MCG/2 ML VIAL ONE (11:02)
[2023-08-05] MEDS ORDERED: KETAMINE 200 MG/20 ML VIAL ONE (11:02)
[2023-08-05] MEDS ORDERED: PROPOFOL 500 MG/50 ML 500 MG/50 ML VIAL ONE (11:02)
[2023-08-05] MEDS ORDERED: MIDAZOLAM 2 MG/2 ML VIAL ONE (11:02)
[2023-08-05] MEDS ORDERED: ONDANSETRON 4 MG/2 ML VIAL ONE (11:02)
[2023-08-05] MEDS: BUPIVACAINE 0.25% PF 30 ML VIAL SUBQ ONE ×2 (11:36)
[2023-08-05] MEDS: LIDOCAINE MPF 1%-EPI 1:200000 30 ML VIAL SUBQ ONE ×2 (11:36)
[2023-08-05] MEDS ORDERED: HYDROcod/ACETAM 5/325 MG TABLET PO PRN (12:34)
[2023-08-05] MEDS ORDERED: ONDANSETRON 4 MG/2 ML VIAL IVP PRN (12:35)
[2023-08-05] MEDS ORDERED: MORPHINE 2 MG/ML CARPUJECT IVP PRN (12:35)
[2023-08-05] MEDS ORDERED: HYDROmorphone 0.5 MG/0.5 ML SYRINGE IVP PRN (12:35)
[2023-08-05] MEDS ORDERED: fentaNYL 100 MCG/2 ML VIAL IVP PRN (12:35)
[2023-08-05] MEDS ORDERED: NALOXONE 0.4 MG/ML VIAL IVP PRN (12:35)
[2023-08-05] MEDS ORDERED: ATROPINE ABBOJECT 1 MG/10 ML SYRINGE IVP PRN (12:35)
[2023-08-05] MEDS ORDERED: LACTATED RINGERS 1,000 ML IV SCH (13:00)
--- NOTE | 2023-08-05 13:13 | OPERATIVE REPORT ---
Operative Report - General Procedure Date: 08/05/23 Planned Procedure: excision back epidermal inclusion cysts Pre-Op Diagnosis: 3 back epidermal inclusion cysts Procedure Performed: excision 2 2cm epidermal inclusion cysts and 2 2.5 cm intermediate repairs excision 2.5 cm epidermal inclusion cysts and 3 cm intermediate repair Post Op Diagnosis: same - Procedure Note Primary Surgeon: chadd buchanan Anesthesia Technique: General LMA Pathology: not sent Estimated Blood Loss (mL): 2 Drain/Tube Type: Other (none) Indications: growing and recently inflamed epidermal inclusion cyst Findings: as above - Other Other Information/Narrative: The patient was prepped identified brought to the operating room and placed in supine position. Laryngeal mask anesthesia was induced. He was carefully repositioned in right lateral decubitus. He was prepped and draped in a sterile fashion. Antibiotics were not given. He had mid to left upper back epidermal inclusion cyst. 2 measured 2 cm. One measured 2.5 cm. Local anesthetic was given. 2 cm epidermal inclusion cyst were excised with an elliptical 2.5 cm incision. The cyst were removed in their entirety intact with sharp dissection. Hemostasis was achieved with cautery. The 2.5 cm incision was removed with an elliptical 3 cm incision. Again it was removed intact. Hemostasis again assured with cautery. Intermediate repair was performed in a similar fashion for all 3. Subcutaneous tissue was closed with interrupted 2-0 Vicryl suture. Buried interrupted subdermal 3-0 Vicryl sutures were then placed. Epidermis was closed with buried interrupted 4-0 Monocryl. Dressings were applied. Tolerated the procedure well was repositioned awakened and brought to recovery in good condition.
[2023-08-05 13:27] VITALS: BP 130/80; O2SAT 99
--- NOTE | 2023-08-05 15:06 | ANESTHESIA POST OP EVALUATION ---
Anesthesia Post Eval - Post Anesthesia Eval Vitals: Last Vital Signs Temp 36.6 C 08/05/23 13:05 Pulse 72 08/05/23 13:05 Resp 16 08/05/23 13:05 BP 130/80 08/05/23 13:05 Pulse Ox 99 08/05/23 13:05 O2 Flow Rate CV Function Including HR & BP: Stable Pain Control: Satisfactory Nausea & Vomiting: Negative Mental Status: Baseline Respiratory Status: Airway Patent Hydration Status: Satisfactory Anesthesia Complications: None
== END 2023-08-05 09:56 | disposition home or self-care (01) ==
LOC: SDS 09:55
PROVIDERS: ATTEND Surgery
DX: L72.3 Sebaceous cyst (principal); G47.33 Obstructive sleep apnea (adult) (pediatric); E66.9 Obesity, unspecified; Z68.37 Body mass index [BMI] 37.0-37.9, adult; Z87.891 Personal history of nicotine dependence
CPT/HCPCS: 11402; 11403; 12034; J3490; J7120

== ENCOUNTER 2023-10-13 10:09 | Outpatient (CLI) | payer MEDICAID ==
[2023-10-13 10:28] LABS: BASOPHILS % (AUTO) 0.5 %; EOSINOPHILS # (AUTO) 0.1 10^3/uL (0.0-0.7); EOSINOPHILS % (AUTO) 1.4 %; HCT - HEMATOCRIT 46.5 % (42.0-52.0); HGB - HEMOGLOBIN 15.8 g/dL (14.0-18.0); LYMPHOCYTES # (AUTO) 1.3 10^3/uL (1.5-3.5); LYMPHOCYTES % (AUTO) 30.2 %; MEAN CORPUSCULAR VOLUME 94.3 fL (80.0-94.0); MEAN PLATELET VOLUME 8.9 fL (7.4-11.4); MONOCYTES # (AUTO) 0.2 10^3/uL (0.0-1.0); MONOCYTES % (AUTO) 4.6 %; NEUTROPHILS # (AUTO) 2.7 10^3/uL (1.5-6.6); NEUTROPHILS % (AUTO) 63.1 %; PLT - PLATELET COUNT 194 10^3/uL (130-450); RED BLOOD COUNT 4.93 10^6/uL (4.70-6.10); WHITE BLOOD COUNT 4.3 x10^3/uL (4.8-10.8)
== END 2023-10-13 10:10 | disposition home or self-care (01) ==
LOC: LAB 10:09
PROVIDERS: ATTEND Urology
DX: E29.1 Testicular hypofunction (principal)
CPT/HCPCS: 36415; 82670; 84153; 84403; 85025

== ENCOUNTER 2023-11-26 17:41 | Outpatient (CLI) | payer MEDICAID ==
[2023-11-26 17:59] LABS: BASOPHILS # (AUTO) 0.1 10^3/uL (0.0-0.1); BASOPHILS % (AUTO) 0.7 %; EOSINOPHILS # (AUTO) 0.1 10^3/uL (0.0-0.7); EOSINOPHILS % (AUTO) 1.5 %; HGB - HEMOGLOBIN 15.7 g/dL (14.0-18.0); LYMPHOCYTES # (AUTO) 2.4 10^3/uL (1.5-3.5); LYMPHOCYTES % (AUTO) 32.9 %; MEAN CORPUSCULAR HEMOGLOBIN 31.7 pg (27.0-31.0); MEAN CORPUSCULAR HGB CONC 34.1 g/dL (32.0-36.0); MEAN CORPUSCULAR VOLUME 92.9 fL (80.0-94.0); MONOCYTES # (AUTO) 0.4 10^3/uL (0.0-1.0); MONOCYTES % (AUTO) 5.5 %; NEUTROPHILS # (AUTO) 4.4 10^3/uL (1.5-6.6); NEUTROPHILS % (AUTO) 59.3 %; PLT - PLATELET COUNT 212 10^3/uL (130-450); RED BLOOD COUNT 4.95 10^6/uL (4.70-6.10); RED CELL DISTRIBUTION WIDTH 12.1 % (12.0-15.0); WHITE BLOOD COUNT 7.4 x10^3/uL (4.8-10.8)
[2023-11-26 18:17] LABS: ALBUMIN 4.6 g/dL (3.2-5.5); ALBUMIN/GLOBULIN RATIO 1.9 (1.0-2.2); BILIRUBIN,TOTAL 0.4 mg/dL (0.2-1.0); CALCIUM 9.5 mg/dL (8.5-10.3); CREATININE 1.1 mg/dL (0.6-1.3); POTASSIUM 4.1 mmol/L (3.5-4.5)
[2023-11-26 18:25] LABS: THYROID STIMULATING HORMONE 2.48 uIU/mL (0.34-5.60)
== END 2023-11-26 17:42 | disposition home or self-care (01) ==
LOC: LAB 17:41
PROVIDERS: ATTEND Nurse Practitioner Family
DX: E29.1 Testicular hypofunction (principal); F41.9 Anxiety disorder, unspecified
CPT/HCPCS: 36415; 80050; 84402; 84403